=== PATIENT | female | born 1940 | race Caucasian/White ===

== ENCOUNTER 2016-12-13 11:11 | Inpatient (IN) | payer MEDICARE, BC ==
--- NOTE | 2016-12-13 11:39 | ER Document Report ---
ED General - General Stated Complaint: FALL/SYNCOPE Mode of Arrival: Medic Information source: Patient, Relative Notes: 76-year-old female on Coumadin presents after a syncopal episode. Patient notes she fell struck her head. Patient denies any chest pain shortness breath difficulty breathing. Family notes that she has not been eating over the past 2 -3 days. TRAVEL OUTSIDE OF THE [place] IN LAST 30 DAYS: No - HPI Onset: Just prior to arrival Onset/Duration: Sudden Quality of pain: No pain Severity: Mild Pain Level: 1 Associated symptoms: Weakness Exacerbated by: Denies Relieved by: Denies Similar symptoms previously: Yes Recently seen / treated by doctor: Yes - Related Data Allergies/Adverse Reactions: codeine [Codeine] Allergy (Verified 07/10/12 20:33) Past Medical History - Social History Smoking Status: Never Smoker Cigarette use (# per day): No Chew tobacco use (# tins/day): No Smoking Education Provided: No Family History: Reviewed & Not Pertinent - Past Medical History Cardiac Medical History: Reports: Hx DVT, Hx Hypercholesterolemia, Hx Hypertension - Immunizations Hx Diphtheria, Pertussis, Tetanus Vaccination: Yes Review of Systems - Review of Systems Notes: REVIEW OF SYSTEMS: CONSTITUTIONAL : Denies fever, chills, or sweats. Denies recent illness. EENT: Denies eye, ear, throat, or mouth pain or symptoms. Denies nasal or sinus congestion or discharge. Denies throat, tongue, or mouth swelling or difficulty swallowing. CARDIOVASCULAR: Denies chest pain. Denies palpitations or racing or irregular heart beat. Denies ankle edema. RESPIRATORY: Denies cough, cold, or chest congestion. Denies shortness of breath, difficulty breathing, or wheezing. GASTROINTESTINAL: Denies abdominal pain or distention. Denies nausea, vomiting , or diarrhea. Denies blood in vomitus, stools, or per rectum. Denies black, tarry stools. Denies constipation. GENITOURINARY: Denies difficulty urinating, painful urination, burning, frequency, blood in urine, or discharge. FEMALE GENITOURINARY: Denies vaginal bleeding, heavy or abnormal periods, irregular periods. Denies vaginal discharge or odor. MUSCULOSKELETAL: Denies back or neck pain or stiffness. Denies joint pain or swelling. SKIN: Admits laceration face HEMATOLOGIC : Denies easy bruising or bleeding. LYMPHATIC: Denies swollen, enlarged glands. NEUROLOGICAL: Admits to syncope PSYCHIATRIC: Denies anxiety or stress. Denies depression, suicidal ideation, or homicidal ideation. ALL OTHER SYSTEMS REVIEWED AND NEGATIVE. Dictation was performed using [employer] voice recognition software PHYSICAL EXAMINATION: GENERAL: Well-appearing, well-nourished and in no acute distress. HEAD: Atraumatic ecchymosis of the orbital region left supraorbital region laceration EYES: Pupils equal round and reactive to light, extraocular movements intact, conjunctiva are normal. ENT: Nares patent, oropharynx clear without exudates. Moist mucous membranes. NECK: Normal range of motion, supple without lymphadenopathy LUNGS: Breath sounds clear to auscultation bilaterally and equal. No wheezes rales or rhonchi. HEART: Regular rate and rhythm without murmurs ABDOMEN: Soft, nontender, nondistended abdomen. No guarding, no rebound. No masses appreciated. Female : deferred Musculoskeletal: Normal range of motion, no pitting or edema. No cyanosis. NEUROLOGICAL: Cranial nerves grossly intact. Normal speech, normal gait. Normal sensory, motor exams PSYCH: Normal mood, normal affect. SKIN: laceration of th eleft supraporbital region Physical Exam - Vital signs Vitals: BP Pulse Ox 159/86 H 97 12/13/16 11:37 12/13/16 11:37 Course - Re-evaluation Re-evalutation: 12/13/16 14:31 Given that patient is having syncopal episode on blood thinners CT of the head neck were performed no significant abnormality was noted, laceration was repaired with full strength sutures. Patient will be admitted to hospital service for evaluation and care - Vital Signs Vital signs: Temp Pulse Resp BP Pulse Ox 98 F 87 25 H 151/116 H 95 12/13/16 11:51 12/13/16 11:51 12/13/16 13:01 12/13/16 13:01 12/13/16 13:01 - Laboratory Result Diagrams: 12/13/16 11:45 12/13/16 11:45 Laboratory results interpreted by me: 12/13/16 12/13/16 12/13/16 11:45 11:45 11:45 RBC 3.56 L Hgb 10.8 L Hct 33.1 L RDW 17.9 H Plt Count 136 L Seg Neutrophils % 81.1 H Lymphocytes % 12.9 L PT Sodium 147.4 H Chloride 109 H Est GFR (Non-Af Amer) 55 L Total Bilirubin 3.0 H NT-Pro-B Natriuret Pep 98670 H Albumin 3.4 L 12/13/16 11:45 RBC Hgb Hct RDW Plt Count Seg Neutrophils % Lymphocytes % PT 15.5 H Sodium Chloride Est GFR (Non-Af Amer) Total Bilirubin NT-Pro-B Natriuret Pep Albumin - Diagnostic Test Radiology reviewed: Image reviewed, Reports reviewed - EKG Interpretation by Me EKG shows normal: Sinus rhythm, [place], Intervals, QRS Complexes - Inverted T waves atrial fibrillation When compared to previous EKG there are: No significant change Procedures - Laceration/Wound Repair Left Upper Face Time completed: 14:32 Wound length (cm): 3.5 Wound's Depth, Shape: Linear, Flap Laceration pre-procedure: Sterile PPE donned, Sterile drapes applied, Shur- Clens applied Anesthetic type: 1% Lidocaine Volume Anesthetic (mLs): 5 Wound explored: Clean, No foreign body removed Irrigated w/ Saline (mLs): 500 Wound Debrided: Moderate Wound Repaired With: Sutures Suture Size/Type: 4:0 Number of Sutures: 4 Post-procedure wound care: Sterile dressing applied Post-procedure NV exam normal: Yes Complications: No Discharge - Discharge Clinical Impression: Weakness Fall Qualifiers: Encounter type: initial encounter Qualified Code(s): W19.XXXA - Unspecified fall, initial encounter Syncope Qualifiers: Syncope type: unspecified Qualified Code(s): R55 - Syncope and collapse Facial laceration Qualifiers: Encounter type: initial encounter Qualified Code(s): S01.81XA - Laceration without foreign body of other part of head, initial encounter Condition: Stable Disposition: ADMITTED OBSERVATION Admitting Provider: Hospitalist Unit Admitted: Telemetry Referrals: CHRISTIANO EDMONDS MD [Primary Care Provider] - Follow up as needed
[2016-12-13 12:13] LABS: ABSOLUTE LYMPHOCYTES (AUTO) 0.6 10^3/uL (0.5-4.7); ABSOLUTE MONOCYTES (AUTO) 0.2 10^3/uL (0.1-1.4); BASOPHILS % (AUTO) 0.8 % (0-2); EOSINOPHILS % (AUTO) 0.9 % (0-6); HEMATOCRIT 33.1 % (36.0-47.0); HEMOGLOBIN 10.8 g/dL (12.0-15.5); HGB HCT DIFFERENCE -0.7; LYMPHOCYTES % (AUTO) 12.9 % (13-45); MEAN CORPUSCULAR HEMOGLOBIN 30.3 pg (27.0-33.4); MEAN CORPUSCULAR HGB CONC 32.5 g/dL (32.0-36.0); MEAN CORPUSCULAR VOLUME 93 fl (80-97); MONOCYTES % (AUTO) 4.3 % (3-13); RED BLOOD COUNT 3.56 10^6/uL (3.72-5.28); RED CELL DISTRIBUTION WIDTH 17.9 % (11.5-14.0); SEGMENTED NEUTROPHILS % (AUTO) 81.1 % (42-78); WHITE BLOOD COUNT 4.9 10^3/uL (4.0-10.5)
[2016-12-13 12:26] LABS: ALANINE AMINOTRANSFERASE 32 U/L (9-52); ALBUMIN 3.4 g/dL (3.5-5.0); ALKALINE PHOSPHATASE 73 U/L (38-126); ANION GAP 12 (5-19); ASPARTATE AMINO TRANSFERASE 21 U/L (14-36); BILIRUBIN,DIRECT 0.4 mg/dL (0.0-0.4); BLOOD UREA NITROGEN 15 mg/dL (7-20); CALCIUM 9.4 mg/dL (8.4-10.2); CARBON DIOXIDE 26 mmol/L (22-30); CHLORIDE 109 mmol/L (98-107); CREATINE KINASE 46 U/L (30-135); CREATININE RESULT 0.98 mg/dL (0.52-1.25); GLUCOSE 88 mg/dL (75-110); LIPASE 47.3 U/L (23-300); POTASSIUM 3.9 mmol/L (3.6-5.0); SODIUM 147.4 mmol/L (137-145); TOTAL PROTEIN 6.6 g/dL (6.3-8.2)
[2016-12-13 12:38] LABS: CREATINE KINASE MB 1.38 ng/mL (<4.55); TROPONIN I 0.022 ng/mL
[2016-12-13 12:39] LABS: PROTHROMBIN TIME 15.5 SEC (11.4-15.4)
[2016-12-13] MEDS ORDERED: NORMAL SALINE 500 ML IV ONE (14:05)
[2016-12-13] MEDS ORDERED: LIDOCAINE 1% INJ-PF (10 MG/ML) 30 ML SDV INJ ONE (14:14)
[2016-12-13] MEDS ORDERED: LIDOCAINE 1% INJ-PF (10 MG/ML) 30 ML SDV ONE (14:17)
[2016-12-13] MEDS ORDERED: NORMAL SALINE 1000 ML 1,000 ML IV PRN (14:42)
[2016-12-13] MEDS ORDERED: OXYCODONE-ACETAMINOPHEN 5-325 MG TABLET PO PRN (14:42)
[2016-12-13] MEDS ORDERED: ACETAMINOPHEN 325 MG TABLET PO PRN (14:42)
[2016-12-13] MEDS ORDERED: ONDANSETRON HCL INJ/PF 4 MG/2 ML SDV IV PRN (14:42)
[2016-12-13] MEDS ORDERED: ONDANSETRON 4 MG TAB.RAPDIS PO PRN (14:42)
[2016-12-13 15:05] LABS: APPEARANCE,URINE SLIGHTLY-CLOUDY; BILIRUBIN,URINE NEGATIVE (NEGATIVE); GLUCOSE, URINE NEGATIVE (NEGATIVE); KETONES,URINE TRACE mg/dL (NEGATIVE); LEUKOCYTE ESTERASE,URINE SMALL (NEGATIVE); NITRITE,URINE POSITIVE (NEGATIVE); PROTEIN,URINE NEGATIVE (NEGATIVE); URINE SPECIFIC GRAVITY 1.014; UROBILINOGEN,URINE NEGATIVE mg/dL (<2.0)
--- NOTE | 2016-12-13 15:07 | PDOC H&P ---
History of Present Illness Admission Date/PCP: 12/13/16 14:54 CHRISTIANO EDMONDS MD Patient complains of: Syncopal episode History of Present Illness: CHRISTINE SOLER is a 76 year old female who has some mild dementia and age fibrillation who presents after syncopal episode. The patient relates that she got up this morning and that her dog and then sat in her chair. She reports the next thing she reports is waking up been on the floor. She has no prodromal symptoms. She denies any palpitations or tachycardia. Denies any chest pain. Denies any headache except where she has a laceration on her left brow. The patient had a head CT which shows no evidence for an Acute intracranial abnormality. Patient denies any bowel or bladder incontinence. Denies any focal weakness. She denies any history of seizure activity. The patient lives alone and is checked on by her family every day. The daughter reports that she talk to her last night and she was normal. She was able to call the daughter to let her know that she had fallen and hit her head. Patient admitted for syncopal episode Past Medical History Cardiac Medical History: Reports: Atrial Fibrillation, DVT, Hyperlipidema, Hypertension, Other - History of thoracic aortic aneurysm with repair 2 Pulmonary Medical History: Reports: None Neurological Medical History: Reports: None Endocrine Medical History: Reports: None Renal/ Medical History: Reports: None Malignancy Medical History: Reports: None GI Medical History: Reports: None Skin Medical History: Reports: None Psychiatric Medical History: Reports: Dementia Hematology: Reports: None Infectious Medical History: Reports: None Past Surgical History Past Surgical History: Reports: Other - Thoracic aortic aneurysm repair 2 Social History Information Source: Patient Lives with: Alone Smoking Status: Never Smoker Frequency of Alcohol Use: None Hx Recreational Drug Use: No Drugs: None Hx Prescription Drug Abuse: No - Advance Directive Resuscitation Status: Do Not Resuscitate Surrogate healthcare decision maker:: Patient's daughter Family History Family History: Mother in her 80s with coronary artery disease. Father in his 80s with coronary artery disease. Parental Family History Reviewed: Yes Children Family History Reviewed: No Sibling(s) Family History Reviewed.: No Medication/Allergy Home Medications: Lisinopril/Hydrochlorothiazide [Zestoretic 20-25 mg Tablet] 1 tab DAILY Metoprolol Tartrate [Lopressor 50 mg Tablet] 50 mg PO BID 07/10/12 Omeprazole [Prilosec 20 mg Capsule] 20 mg PO DAILY 07/10/12 Simvastatin [Zocor 10 mg Tablet] 10 mg PO 07/10/12 Warfarin Sodium [Coumadin 7.5 mg Tablet] 7.5 mg PO 07/10/12 Warfarin Sodium [Coumadin] 6 mg PO 07/10/12 Allergies/Adverse Reactions: codeine [Codeine] Allergy (Verified 07/10/12 20:33) Review of Systems Constitutional: PRESENT: weight loss - 100 pound weight loss over the last year. ABSENT: chills, fever(s), headache(s) Eyes: ABSENT: visual disturbances Ears: ABSENT: hearing changes Cardiovascular: ABSENT: chest pain, dyspnea on exertion, edema, orthropnea, palpitations Respiratory: ABSENT: cough, hemoptysis Gastrointestinal: ABSENT: abdominal pain, constipation, diarrhea, hematemesis, hematochezia, nausea, vomiting Genitourinary: ABSENT: dysuria, hematuria Musculoskeletal: PRESENT: other - Pain over right brow where she has a laceration Integumentary: PRESENT: wounds - Right brow laceration. ABSENT: rash Neurological: PRESENT: as per HPI Psychiatric: ABSENT: anxiety, depression Endocrine: ABSENT: cold intolerance, heat intolerance, polydipsia, polyuria Hematologic/Lymphatic: ABSENT: easy bleeding, easy bruising Physical Exam Vital Signs: Temp Pulse Resp BP Pulse Ox 98 F 87 25 H 151/116 H 95 12/13/16 11:51 12/13/16 11:51 12/13/16 13:01 12/13/16 13:01 12/13/16 13:01 General appearance: PRESENT: no acute distress Head exam: PRESENT: other - Laceration has been sutured over the left brow. Eye exam: PRESENT: conjunctiva pink, EOMI, periorbital swelling - Left periorbital swelling, PERRLA. ABSENT: scleral icterus Ear exam: PRESENT: normal external ear exam Mouth exam: PRESENT: moist, tongue midline Neck exam: ABSENT: carotid bruit, JVD, lymphadenopathy, thyromegaly Respiratory exam: PRESENT: clear to auscultation staci. ABSENT: rales, rhonchi, wheezes Cardiovascular exam: PRESENT: irregular rhythm. ABSENT: diastolic murmur, rubs , systolic murmur GI/Abdominal exam: PRESENT: normal bowel sounds, soft. ABSENT: distended, guarding, mass, organolmegaly, rebound, tenderness Rectal exam: PRESENT: deferred Extremities exam: ABSENT: calf tenderness, clubbing, pedal edema Neurological exam: PRESENT: alert, awake, oriented to person, oriented to place , oriented to time, oriented to situation, CN II-XII grossly intact. ABSENT: motor sensory deficit Psychiatric exam: PRESENT: appropriate affect Skin exam: PRESENT: other - Ecchymosis and laceration over left brow Results Impressions: Cervical Spine CT 12/13/16 11:15 IMPRESSION: 1. Chronic degenerative changes and osteopenia in the cervical spine. No fracture or significant malalignment. 2. Apical lung changes, incompletely evaluated. Suggestion of left pleural fluid but no pneumothorax. Head CT 12/13/16 11:15 IMPRESSION: Chronic intracranial changes without evidence of hemorrhage or acute abnormality. Soft tissue injury over the left scalp. No underlying fracture. Chest X-Ray 12/13/16 12:46 IMPRESSION: Interstitial changes. Acuity indeterminate but suspect chronic interstitial disease. Cardiac enlargement. Findings not clearly related to congestive failure. Assessment & Plan - Diagnosis (1) Syncope Qualifiers: Syncope type: unspecified Qualified Code(s): R55 - Syncope and collapse Is this a current diagnosis for this admission?: YesPlan: The patient had a syncopal episode with no prodromal symptoms. This is concerning for possible cardiac arrhythmias. We'll monitor on telemetry and check serial cardiac enzymes. She does have atrial fibrillation and has been on a beta gavin. (2) Atrial fibrillation Is this a current diagnosis for this admission?: YesPlan: Patient currently is rate controlled. She is anticoagulated. We'll continue to monitor her heart rhythm overnight on telemetry. (3) Hypertension Is this a current diagnosis for this admission?: YesPlan: The patient's blood pressures are elevated. We'll continue with the Lopressor as well as lisinopril/hydrochlorothiazide (4) Hyperlipidemia Is this a current diagnosis for this admission?: YesPlan: Continue with Zocor. (5) Thoracic aortic aneurysm Is this a current diagnosis for this admission?: YesPlan: Patient has a history of thoracic aortic and years and repaired 2. She also relates that she has a Carlton filter in place. The patient reports that she would not want any other surgeries done. (6) Facial laceration Qualifiers: Encounter type: initial encounter Qualified Code(s): S01.81XA - Laceration without foreign body of other part of head, initial encounter Is this a current diagnosis for this admission?: YesPlan: The patient had a head CT which shows no acute intracranial event. No evidence for bone fracture. She has had sutures per the emergency room physician. (7) Do not resuscitate discussion Is this a current diagnosis for this admission?: YesPlan: This was discussed with the patient as well as the patient's daughter. They do not want any aggressive measures done. - Time Time Spent: 50 to 70 Minutes - Plan Summary Plan Summary: Patient will be admitted observation as I anticipate this will require less than two midnight hospital stay.
[2016-12-13] MEDS ORDERED: CIPROFLOXACIN 400 MG/D5W RTU 200 ML IV ONE (15:24)
[2016-12-13] MEDS: METOPROLOL TARTRATE 50 MG TABLET PO SCH (17:10)
[2016-12-13 18:21] LABS: CREATINE KINASE MB 1.21 ng/mL (<4.55); TROPONIN I 0.03 ng/mL
[2016-12-13] MEDS: FAMOTIDINE 20 MG TABLET PO SCH (21:11)
[2016-12-13] MEDS: SIMVASTATIN 10 MG TABLET PO SCH (21:11)
[2016-12-14 00:49] LABS: CREATINE KINASE MB 1.17 ng/mL (<4.55); TROPONIN I 0.023 ng/mL
[2016-12-14] MEDS: METOPROLOL TARTRATE 50 MG TABLET PO SCH ×2 (05:08→21:36)
[2016-12-14 06:07] LABS: HEMATOCRIT 30.9 % (36.0-47.0); HEMOGLOBIN 10.1 g/dL (12.0-15.5); HGB HCT DIFFERENCE -0.6; MEAN CORPUSCULAR HEMOGLOBIN 30.5 pg (27.0-33.4); MEAN CORPUSCULAR HGB CONC 32.7 g/dL (32.0-36.0); MEAN CORPUSCULAR VOLUME 93 fl (80-97); RED BLOOD COUNT 3.31 10^6/uL (3.72-5.28); RED CELL DISTRIBUTION WIDTH 17.9 % (11.5-14.0); WHITE BLOOD COUNT 4.4 10^3/uL (4.0-10.5)
[2016-12-14 06:20] LABS: MAGNESIUM 1.7 mg/dL (1.6-2.3)
[2016-12-14 06:34] LABS: CREATINE KINASE MB 1.01 ng/mL (<4.55); TROPONIN I 0.019 ng/mL
[2016-12-14] MEDS: CIPROFLOXACIN 400 MG/D5W RTU 200 ML IV SCH ×2 (09:30→21:35)
[2016-12-14] MEDS: FAMOTIDINE 20 MG TABLET PO SCH ×2 (09:31→21:36)
[2016-12-14] MEDS: HYDROCHLOROTHIAZIDE 25 MG TABLET PO SCH (09:31)
[2016-12-14] MEDS: LISINOPRIL 10 MG TABLET PO SCH (09:32)
[2016-12-14] MEDS: LANSOPRAZOLE 15 MG TAB.RAP.DR PO SCH (09:32)
[2016-12-14] MEDS: HALOPERIDOL LACTATE INJ 5 MG/1 ML VIAL IV PRN ×2 (09:33→15:10)
[2016-12-14] MEDS ORDERED: (PENDING PHARMACY ID) (Omeprazole [Prilosec 20 Mg Capsule] 20 MG) PO SCH (10:00)
[2016-12-14] MEDS ORDERED: (PENDING PHARMACY ID) (Lisinopril/Hydrochlorothiazide [Zestoretic 20-25 Mg Tablet] 1 TAB) PO SCH (10:00)
--- NOTE | 2016-12-14 10:52 | PDOC PROGRESS REPORT ---
Subjective Progress Note for:: 12/14/16 Subjective:: Patient has become very agitated overnight. She's been calling her family saying that people have been trying to steal things from her room. Physical Exam Vital Signs: Temp Pulse Resp BP Pulse Ox 97.6 F 89 16 129/83 H 90 L 12/14/16 07:39 12/14/16 07:39 12/14/16 07:39 12/14/16 07:39 12/14/16 07:39 General appearance: PRESENT: no acute distress Eye exam: PRESENT: conjunctiva pink, periorbital swelling. ABSENT: scleral icterus Mouth exam: PRESENT: moist, tongue midline Neck exam: ABSENT: JVD Respiratory exam: PRESENT: clear to auscultation staci. ABSENT: rales, rhonchi, wheezes Cardiovascular exam: PRESENT: irregular rhythm. ABSENT: diastolic murmur, rubs , systolic murmur GI/Abdominal exam: PRESENT: normal bowel sounds, soft. ABSENT: distended, guarding, mass, organolmegaly, rebound, tenderness Extremities exam: ABSENT: calf tenderness, clubbing, pedal edema Neurological exam: PRESENT: altered, oriented to person, CN II-XII grossly intact. ABSENT: oriented to place, oriented to time, oriented to situation, motor sensory deficit Psychiatric exam: PRESENT: anxious Results Impressions: Cervical Spine CT 12/13/16 11:15 IMPRESSION: 1. Chronic degenerative changes and osteopenia in the cervical spine. No fracture or significant malalignment. 2. Apical lung changes, incompletely evaluated. Suggestion of left pleural fluid but no pneumothorax. Head CT 12/13/16 11:15 IMPRESSION: Chronic intracranial changes without evidence of hemorrhage or acute abnormality. Soft tissue injury over the left scalp. No underlying fracture. Chest X-Ray 12/13/16 12:46 IMPRESSION: Interstitial changes. Acuity indeterminate but suspect chronic interstitial disease. Cardiac enlargement. Findings not clearly related to congestive failure. Assessment & Plan - Diagnosis (1) Syncope Qualifiers: Syncope type: unspecified Qualified Code(s): R55 - Syncope and collapse Is this a current diagnosis for this admission?: YesPlan: The patient had a syncopal episode with no prodromal symptoms. The patient's cardiac rhythm has been unremarkable overnight. She does have atrial fibrillation and has been on a beta gavin. She has become more confused overnight. This may be secondary to her underlying urinary tract infection. She appears to have developed acute encephalopathy. (2) Encephalopathy acute Is this a current diagnosis for this admission?: YesPlan: Patient has acute encephalopathy. This may be secondary to hospitalization or could possibly related to her acute urinary tract infection. Patient has been started on IV Cipro. The patient is not safe for discharge to home given her mental status change and recent head trauma. She does not have any focal deficits at this time however given the mental status changes we will go ahead and repeat head CT to make certain she's not had a delayed intracranial bleed. (3) Atrial fibrillation Is this a current diagnosis for this admission?: YesPlan: Patient currently is rate controlled. She is anticoagulated. We'll continue to monitor her heart rhythm on telemetry. (4) Hypertension Is this a current diagnosis for this admission?: YesPlan: The patient's blood pressures are elevated. We'll continue with the Lopressor as well as lisinopril/hydrochlorothiazide (5) Hyperlipidemia Is this a current diagnosis for this admission?: YesPlan: Continue with Zocor. (6) Thoracic aortic aneurysm Is this a current diagnosis for this admission?: YesPlan: Patient has a history of thoracic aortic and years and repaired 2. She also relates that she has a Carlton filter in place. The patient reports that she would not want any other surgeries done. (7) Facial laceration Qualifiers: Encounter type: initial encounter Qualified Code(s): S01.81XA - Laceration without foreign body of other part of head, initial encounter Is this a current diagnosis for this admission?: YesPlan: The patient had a head CT which shows no acute intracranial event. No evidence for bone fracture. She has had sutures per the emergency room physician. (8) Do not resuscitate discussion Is this a current diagnosis for this admission?: YesPlan: This was discussed with the patient as well as the patient's daughter. They do not want any aggressive measures done. - Time Time Spent with patient: 25-34 minutes - Inpatient Certification Medical Necessity: Need Close Monitoring Due to Risk of Patient Decompensation, Need for IV Antibiotics - Plan Summary Plan Summary: We'll change from observation to an inpatient as she has had an acute worsening of her neurological status. This most likely secondary to the urinary tract infection however we'll need to make certain that she has not had any type of acute intracranial event.
--- NOTE | 2016-12-14 12:31 | Physician Advisory Note ---
Physician Advisor ProgressNote .: Pursuant to the plan for [facility], I have reviewed the medical record for this patient. Physician Advisor Statement: Nice documentation of need for continued hospitalization. Possible documentation opportunities if attending agrees: 1. "hypernatremia, likely due to intravascular volume depletion due to poor po intake [from advanced dementia?]" 2. "persistent Afib" - now need to specify "paroxysmal" or "persistent" when report Afib. 3. "suspected protein-calorie malnutrition [state mild, mod, or severe] with BMI 22.4, 100 pound wt loss over last 1 year, ____[?appetite loss, ]" [if possible, give specifics on intake, wt loss, loss of SQ fat & muscle mass, diminished hand laborer high density press strength, & clinical importance such as (A) nutritional assessment ordered, (B) modified diet or supplements ordered, (C) additional labs ordered, (D) prolonged wound healing time, (E) delayed infxn clearance] As always, if concerned about any unstable VS or abnormal labs, please comment on them - what bad things they might indicate, why they concern you - & note what doing about them. Please also document each day the potential clinical problems you are concerned could occur if pt not kept in hospital for tx at this time. (These points are gatica - if present in each note, attending's status decision should be sufficiently supported.) Discussion: 76yo female w/ chronic co-morbidities including HTN, HLD, persistent Afib on chronic anticoagulation w/warfarin, past DVT, dementia, thoracic aortic aneurysm repair x2, IVCfilter - presented 12/13 to ED w/weakness, fall w/striking of head, syncope, facial lac , not eating x 2-3 days, 100# wt loss over the last yr (+) T98, HR 94 & as high as 101, RR14-25, BP 151/116, sat 97% then 96% on 2L. WBC 4.9, HGb 10.8, plts 136, Na 147.4, K 3.9, BUN 15, Cr 0.98, glc 88, TBili 3.0 , albumin 3.4, PT 15.5, INR 1.19, BNP 11,500, trop I 0.022. CXR c/w chronic ILD , cardiomegaly. Head CT = no acute intracranial findings. ED gave 500ml VF, IV cipro. Attending ordered NS @125ml/hr, IV cipro, tele monitoring, daily wts, I/Os, falls precautions, q4h VS. Status: Appropriate to bring in initially as Outpt Obs for syncope, hypernatremia. Since arrival, pt has worsening Hgb level (in setting of microscopic hematuria/ UTI, head trauma w/laceration, new AMS - very concerning for risk of ongoing blood loss, or delayed intracranial hemorrhage in patient already on warfarin). Trop Is went as high as 0.030, & then have fallen again. Pt now has worsening thrombocytopenia, which also increases risk for bleeding from any or all of these sources. She has developed significant agitation, which could be delirium from hosptitalization or from acute UTI, or due to new intracranial problem. This needs to be clarified, and the risks of continued agitation mitigated, before she can be safely d/c'd. This includes finding results of ur cx, to be certain UTI is being sufficiently treated so she does not become acutely worse in short term (in H/H as well as mental status). This AM, attending has needed to order prn Haldol 5mg (which may be sufficient to control her agitation but could also be enough to oversedate her with risk for further decrease in po intake in this already malnourished pt), along with CT head repeat to confirm no new intracranial bleeding. Attending plans to re-check labs in AM (f/u H/H, Na, watch for worsening WBC, ...). Tx for this Medicare pt for a 2nd MN in inpatient hospital setting is medically reasonable & necessary to protect pt's health, safety, & medical condition. Appropriate for change to Inpt status today. Thanks for your help with documentation accuracy/specificity improvement! Breann Sapp MD [facility]ENDING S[facility] Physician Advisor, Fellow of Hospital Medicine
[2016-12-14] MEDS: SIMVASTATIN 10 MG TABLET PO SCH (21:36)
[2016-12-15] MEDS: HALOPERIDOL LACTATE INJ 5 MG/1 ML VIAL IV PRN (00:01)
[2016-12-15 06:42] LABS: ABSOLUTE EOSINOPHILS # (AUTO) 0.1 10^3/uL (0.0-0.6); ABSOLUTE LYMPHOCYTES (AUTO) 0.8 10^3/uL (0.5-4.7); ABSOLUTE MONOCYTES (AUTO) 0.2 10^3/uL (0.1-1.4); ABSOLUTE NEUT (AUTO) 2.7 10^3/uL (1.7-8.2); BASOPHILS % (AUTO) 0.8 % (0-2); EOSINOPHILS % (AUTO) 2.6 % (0-6); HEMATOCRIT 30.3 % (36.0-47.0); HGB HCT DIFFERENCE -0.3; LYMPHOCYTES % (AUTO) 21.3 % (13-45); MEAN CORPUSCULAR HEMOGLOBIN 30.6 pg (27.0-33.4); MEAN CORPUSCULAR VOLUME 93 fl (80-97); MONOCYTES % (AUTO) 6.1 % (3-13); RED BLOOD COUNT 3.27 10^6/uL (3.72-5.28); RED CELL DISTRIBUTION WIDTH 17.7 % (11.5-14.0); SEGMENTED NEUTROPHILS % (AUTO) 69.2 % (42-78); WHITE BLOOD COUNT 3.9 10^3/uL (4.0-10.5)
[2016-12-15 06:59] LABS: ANION GAP 11 (5-19); BLOOD UREA NITROGEN 14 mg/dL (7-20); CALCIUM 8.9 mg/dL (8.4-10.2); CARBON DIOXIDE 25 mmol/L (22-30); CHLORIDE 108 mmol/L (98-107); CREATININE RESULT 0.97 mg/dL (0.52-1.25); GLUCOSE 79 mg/dL (75-110); POTASSIUM 3.6 mmol/L (3.6-5.0); SODIUM 143.9 mmol/L (137-145)
[2016-12-15] MEDS: FAMOTIDINE 20 MG TABLET PO SCH ×2 (09:20→21:48)
[2016-12-15] MEDS: LISINOPRIL 10 MG TABLET PO SCH (09:21)
[2016-12-15] MEDS: LANSOPRAZOLE 15 MG TAB.RAP.DR PO SCH (09:21)
[2016-12-15] MEDS: HYDROCHLOROTHIAZIDE 25 MG TABLET PO SCH (09:21)
[2016-12-15] MEDS: CIPROFLOXACIN 400 MG/D5W RTU 200 ML IV SCH ×2 (09:22→21:48)
[2016-12-15] MEDS ORDERED: METOPROLOL TARTRATE 50 MG TABLET PO SCH (09:23)
--- NOTE | 2016-12-15 09:35 | PDOC PROGRESS REPORT ---
Subjective Progress Note for:: 12/15/16 Subjective:: Patient complains of leg pain on the right. Patient denies any dizziness, chest pain, shortness of breath, nausea or vomiting, abdominal pain prior to the syncopal episode. No chills or fever as well. Physical Exam Vital Signs: Temp Pulse Resp BP Pulse Ox 97.5 F 68 16 140/79 H 96 12/15/16 07:25 12/15/16 07:25 12/15/16 07:25 12/15/16 07:25 12/15/16 07:25 Intake & Output 12/14/16 12/15/16 12/16/16 06:59 06:59 06:59 Intake Total 2648 Balance 2648 Weight 65 kg General appearance: PRESENT: no acute distress, cooperative Head exam: PRESENT: normocephalic Eye exam: PRESENT: EOMI, other - Patient has ecchymosis periorbitally on the left. Sutures left eyebrow intact. Wound without bleeding. Mouth exam: PRESENT: moist, neck supple Neck exam: ABSENT: JVD Respiratory exam: PRESENT: clear to auscultation staci Cardiovascular exam: PRESENT: irregular rhythm, systolic murmur - Left sternal border. ABSENT: gallop GI/Abdominal exam: PRESENT: soft. ABSENT: distended, tenderness Extremities exam: PRESENT: pedal edema - Mild on the right, other - Tenderness on the leg anteriorly on the right Neurological exam: PRESENT: alert, awake, oriented to situation Skin exam: PRESENT: dry, warm. ABSENT: cyanosis Results Laboratory Results: 12/15/16 06:13 12/15/16 06:13 12/15/16 12/15/16 06:13 06:13 WBC 3.9 L RBC 3.27 L Hgb 10.0 L Hct 30.3 L MCV 93 MCH 30.6 MCHC 33.0 RDW 17.7 H Plt Count 106 L Seg Neutrophils % 69.2 Lymphocytes % 21.3 Monocytes % 6.1 Eosinophils % 2.6 Basophils % 0.8 Absolute Neutrophils 2.7 Absolute Lymphocytes 0.8 Absolute Monocytes 0.2 Absolute Eosinophils 0.1 Absolute Basophils 0.0 Sodium 143.9 Potassium 3.6 Chloride 108 H Carbon Dioxide 25 Anion Gap 11 BUN 14 Creatinine 0.97 Est GFR ( Amer) > 60 Est GFR (Non-Af Amer) 56 L Glucose 79 Calcium 8.9 Impressions: Cervical Spine CT 12/13/16 11:15 IMPRESSION: 1. Chronic degenerative changes and osteopenia in the cervical spine. No fracture or significant malalignment. 2. Apical lung changes, incompletely evaluated. Suggestion of left pleural fluid but no pneumothorax. Chest X-Ray 12/13/16 12:46 IMPRESSION: Interstitial changes. Acuity indeterminate but suspect chronic interstitial disease. Cardiac enlargement. Findings not clearly related to congestive failure. Head CT 12/14/16 00:00 IMPRESSION: Limited study due to motion artifact. No acute intracranial hemorrhage, mass effect, or midline shift. Assessment & Plan - Diagnosis (1) Fall Qualifiers: Encounter type: subsequent encounter Qualified Code(s): W19.XXXD - Unspecified fall, subsequent encounter Is this a current diagnosis for this admission?: Yes (2) Syncope Qualifiers: Syncope type: unspecified Qualified Code(s): R55 - Syncope and collapse Is this a current diagnosis for this admission?: Yes (3) UTI (urinary tract infection) Qualifiers: Urinary tract infection type: acute cystitis Hematuria presence: without hematuria Qualified Code(s): N30.00 - Acute cystitis without hematuria Is this a current diagnosis for this admission?: Yes (4) Warfarin-induced coagulopathy Is this a current diagnosis for this admission?: Yes (5) Anemia of chronic disease Is this a current diagnosis for this admission?: Yes (6) Dementia Qualifiers: Dementia type: unspecified type Dementia behavioral disturbance: without behavioral disturbance Qualified Code(s): F03.90 - Unspecified dementia without behavioral disturbance Is this a current diagnosis for this admission?: Yes (7) Atrial fibrillation Qualifiers: Atrial fibrillation type: unspecified Qualified Code(s): I48.91 - Unspecified atrial fibrillation Is this a current diagnosis for this admission?: Yes (8) Hyperlipidemia Qualifiers: Hyperlipidemia type: unspecified Qualified Code(s): E78.5 - Hyperlipidemia, unspecified Is this a current diagnosis for this admission?: Yes (9) Hypertension Qualifiers: Hypertension type: essential hypertension Qualified Code(s): I10 - Essential (primary) hypertension Is this a current diagnosis for this admission?: Yes (10) Thoracic aortic aneurysm Qualifiers: Presence of rupture: without rupture Qualified Code(s): I71.2 - Thoracic aortic aneurysm, without rupture Is this a current diagnosis for this admission?: Yes (11) History of DVT (deep vein thrombosis) Is this a current diagnosis for this admission?: Yes - Time Time Spent with patient: 25-34 minutes - Plan Summary Plan Summary: We will decrease intravenous fluids. Decrease dose of beta gavin. Begin physical therapy. Continue current antibiotics. Obtain echocardiogram. Check orthostatics.
[2016-12-15] MEDS: NORMAL SALINE 1000 ML 1,000 ML IV PRN ×2 (12:32→16:09)
[2016-12-15] MEDS: METOPROLOL TARTRATE 25 MG TABLET PO SCH (17:55)
[2016-12-15] MEDS: SIMVASTATIN 10 MG TABLET PO SCH (21:48)
[2016-12-15] MEDS: NYSTATIN TOPICAL POWDER 15 GM TP SCH (21:48)
[2016-12-16] MEDS: HALOPERIDOL LACTATE INJ 5 MG/1 ML VIAL IV PRN ×2 (00:44→13:46)
[2016-12-16] MEDS: METOPROLOL TARTRATE 25 MG TABLET PO SCH ×2 (05:26→18:46)
[2016-12-16 06:30] LABS: HEMATOCRIT 29.8 % (36.0-47.0); HEMOGLOBIN 10.1 g/dL (12.0-15.5); HGB HCT DIFFERENCE 0.5; MEAN CORPUSCULAR HEMOGLOBIN 31.2 pg (27.0-33.4); MEAN CORPUSCULAR HGB CONC 33.8 g/dL (32.0-36.0); MEAN CORPUSCULAR VOLUME 92 fl (80-97); RED BLOOD COUNT 3.23 10^6/uL (3.72-5.28); RED CELL DISTRIBUTION WIDTH 17.7 % (11.5-14.0); WHITE BLOOD COUNT 4.1 10^3/uL (4.0-10.5)
[2016-12-16] MEDS: FAMOTIDINE 20 MG TABLET PO SCH ×2 (08:53→22:08)
[2016-12-16] MEDS: LANSOPRAZOLE 15 MG TAB.RAP.DR PO SCH (08:54)
[2016-12-16] MEDS: HYDROCHLOROTHIAZIDE 25 MG TABLET PO SCH (08:54)
[2016-12-16] MEDS: CIPROFLOXACIN 400 MG/D5W RTU 200 ML IV SCH ×2 (08:54→22:07)
[2016-12-16] MEDS: LISINOPRIL 10 MG TABLET PO SCH (08:54)
[2016-12-16] MEDS: NYSTATIN TOPICAL POWDER 15 GM TP SCH ×2 (08:55→22:07)
--- NOTE | 2016-12-16 09:13 | PDOC PROGRESS REPORT ---
Subjective Progress Note for:: 12/16/16 Subjective:: Patient's leg pain on the right slightly less. Patient denies any dizziness but understanding feels generally weak on her lower extremities, no chest pain, shortness of breath, nausea or vomiting, abdominal pain, chills nor fever as well. Physical Exam Vital Signs: Temp Pulse Resp BP Pulse Ox 97.5 F 79 18 163/80 H 93 12/16/16 07:38 12/16/16 07:38 12/16/16 07:38 12/16/16 07:38 12/16/16 07:38 Intake & Output 12/15/16 12/16/16 12/17/16 06:59 06:59 06:59 Intake Total 2648 3425 Balance 2648 3425 Weight 65 kg 65 kg General appearance: PRESENT: no acute distress, cooperative, thin Head exam: PRESENT: normocephalic Eye exam: PRESENT: other - Ecchymosis around left eye stable Mouth exam: PRESENT: moist, neck supple Neck exam: ABSENT: JVD Respiratory exam: PRESENT: clear to auscultation staci. ABSENT: rhonchi, wheezes Cardiovascular exam: PRESENT: irregular rhythm. ABSENT: gallop GI/Abdominal exam: PRESENT: soft. ABSENT: distended, tenderness Extremities exam: PRESENT: other - Trace pretibial edema Neurological exam: PRESENT: alert, awake, oriented to situation Skin exam: PRESENT: dry, warm. ABSENT: cyanosis Results Laboratory Results: 12/16/16 05:20 12/15/16 06:13 12/16/16 05:20 WBC 4.1 RBC 3.23 L Hgb 10.1 L Hct 29.8 L MCV 92 MCH 31.2 MCHC 33.8 RDW 17.7 H Plt Count 107 L Impressions: Cervical Spine CT 12/13/16 11:15 IMPRESSION: 1. Chronic degenerative changes and osteopenia in the cervical spine. No fracture or significant malalignment. 2. Apical lung changes, incompletely evaluated. Suggestion of left pleural fluid but no pneumothorax. Chest X-Ray 12/13/16 12:46 IMPRESSION: Interstitial changes. Acuity indeterminate but suspect chronic interstitial disease. Cardiac enlargement. Findings not clearly related to congestive failure. Head CT 12/14/16 00:00 IMPRESSION: Limited study due to motion artifact. No acute intracranial hemorrhage, mass effect, or midline shift. Ankle X-Ray 12/15/16 00:00 IMPRESSION: Calcaneal spur with no acute abnormality of the ankle. Tibia/Fibula X-Ray 12/15/16 00:00 IMPRESSION: NEGATIVE STUDY OF THE RIGHT TIBIA AND FIBULA. NO RADIOGRAPHIC EVIDENCE OF ACUTE INJURY. Assessment & Plan - Diagnosis (1) Fall Qualifiers: Encounter type: subsequent encounter Qualified Code(s): W19.XXXD - Unspecified fall, subsequent encounter Is this a current diagnosis for this admission?: Yes (2) Syncope Qualifiers: Syncope type: unspecified Qualified Code(s): R55 - Syncope and collapse Is this a current diagnosis for this admission?: Yes (3) UTI (urinary tract infection) Qualifiers: Urinary tract infection type: acute cystitis Hematuria presence: without hematuria Qualified Code(s): N30.00 - Acute cystitis without hematuria Is this a current diagnosis for this admission?: Yes (4) Warfarin-induced coagulopathy Is this a current diagnosis for this admission?: Yes (5) Anemia of chronic disease Is this a current diagnosis for this admission?: Yes (6) Dementia Qualifiers: Dementia type: unspecified type Dementia behavioral disturbance: without behavioral disturbance Qualified Code(s): F03.90 - Unspecified dementia without behavioral disturbance Is this a current diagnosis for this admission?: Yes (7) Atrial fibrillation Qualifiers: Atrial fibrillation type: unspecified Qualified Code(s): I48.91 - Unspecified atrial fibrillation Is this a current diagnosis for this admission?: Yes (8) Hyperlipidemia Qualifiers: Hyperlipidemia type: unspecified Qualified Code(s): E78.5 - Hyperlipidemia, unspecified Is this a current diagnosis for this admission?: Yes (9) Hypertension Qualifiers: Hypertension type: essential hypertension Qualified Code(s): I10 - Essential (primary) hypertension Is this a current diagnosis for this admission?: Yes (10) Thoracic aortic aneurysm Qualifiers: Presence of rupture: without rupture Qualified Code(s): I71.2 - Thoracic aortic aneurysm, without rupture Is this a current diagnosis for this admission?: Yes (11) History of DVT (deep vein thrombosis) Is this a current diagnosis for this admission?: Yes - Time Time Spent with patient: 25-34 minutes - Plan Summary Plan Summary: Continue current antibiotics. Continue gentle hydration. Physical therapy, awaiting subacute rehabilitation bed. Continue supportive care. Check orthostatic blood pressure. Awaiting echocardiogram.
--- NOTE | 2016-12-16 20:08 | XCELERA REPORT ---
[address] [address] Transthoracic Echocardiogram Report Name: CHRISTINE SOLER Age: 76 yrs Gender: Female : 1940 Patient Status: Inpatient Patient Location: 5\S\528\S\A Study Date: 12/16/2016 09:32 AM Height: 67 in Weight: 143 lb BSA: 1.8 m2 Procedure: A complete two-dimensional transthoracic echocardiogram was performed (2D, M-mode, spectral and color flow Doppler). The study was technically difficult with many images being suboptimal in quality. Reason For Study: syncope, valvular heart disease. Ordering Physician: ALEX TORREZ Performed By: Charisma Rangel Interpretation Summary LV EF is 40-45% Left ventricular systolic function is mild to moderately reduced. There is borderline concentric left ventricular hypertrophy. The left ventricle is grossly normal size. There is mild to moderate global hypokinesis of the left ventricle. The right ventricle is mildly dilated. The right ventricular systolic function is mild to moderately reduced. The right atrium is moderately dilated. The left atrium is mildly dilated. There is no mitral valve stenosis. There is a mild to moderate amount of mitral regurgitation There is no aortic valve stenosis There is a mild amount of aortic regurgitation There is a mild to moderate amount of tricuspid regurgitation Best estimated right ventricular systolic pressure is elevated at 50- 60mmHg. There is moderate to severe pulmonary hypertension by echo The inferior vena cava appeared normal and decreased < 50% with respiration (RAP 10-15 mmHg) There is no pericardial effusion. MMode/2D Measurements \T\ Calculations RVDd: 3.2 cm LVIDd: 5.0 cm FS: 20.5 % Ao root diam: 4.2 cm IVSd: 1.0 cm LVIDs: 4.0 cm EDV(Teich): LVPWd: 1.0 cm 117.2 ml Ao root area: 14.0 cm2 ESV(Teich): LA dimension: 4.4 cm 68.3 ml EF(Teich): 41.7 % LA A2Cs: LA A4Cs: LA length: 8.3 cm LA Vol Index (BP): 32.3 cm2 39.1 cm2 73.5 ml/m2 LA Volume: 128.9 ml Doppler Measurements \T\ Calculations MV E max david: MV P1/2t max david: Ao V2 max: AI max david: 112.0 cm/sec 113.0 cm/sec 143.0 cm/sec 527.9 cm/sec MV A max david: MV P1/2t: 38.7 msec Ao max PG: AI max P.4 cm/sec 8.2 mmHg 111.5 mmHg MV E/A: 2.5 MVA(P1/2t): 5.7 cm2 AI dec slope: MV dec slope: 856.2 cm/sec2 256.1 cm/sec2 MV dec time: AI P1/2t: 0.12 sec 603.7 msec LV V1 max PG: PA V2 max: PI end-d david: TR max david: 3.7 mmHg 67.1 cm/sec 226.7 cm/sec 357.0 cm/sec LV V1 max: PA max P.8 mmHg TR max P.3 cm/sec 51.0 mmHg Left Ventricle The left ventricle is grossly normal size. There is borderline concentric left ventricular hypertrophy. Left ventricular systolic function is mild to moderately reduced. LV EF is 40-45%. Doppler measurements suggest reversible restrictive left ventricular relaxation, which is associated with grade III/IV or moderate diastolic dysfunction. There is mild to moderate global hypokinesis of the left ventricle. Right Ventricle The right ventricle is mildly dilated. There is normal right ventricular wall thickness. The right ventricular systolic function is mild to moderately reduced. Atria The right atrium is moderately dilated. The left atrium is mildly dilated. Interarterial septum not well visualized and not well dopplered. Cannot comment on ASD/PFO presence. Mitral Valve The mitral valve leaflets are sclerotic and show some degree of functional abnormality. There is no mitral valve stenosis. There is a mild to moderate amount of mitral regurgitation. Aortic Valve The aortic valve is grossly normal. There is no aortic valve stenosis. There is a mild amount of aortic regurgitation. Tricuspid Valve The tricuspid valve is not well visualized, but is grossly normal. There is no tricuspid stenosis. There is a mild to moderate amount of tricuspid regurgitation. There is moderate to severe pulmonary hypertension by echo. Best estimated right ventricular systolic pressure is elevated at 50- 60mmHg. Pulmonic Valve The pulmonic valve is not well visualized. Great Vessels The aortic root is not well visualized but is probably normal size. The inferior vena cava appeared normal and decreased < 50% with respiration (RAP 10-15 mmHg). Effusions There is no pericardial effusion. : ALEX TORREZ > Aelxander Mccollum
[2016-12-16] MEDS: SIMVASTATIN 10 MG TABLET PO SCH (22:08)
[2016-12-17] MEDS: HALOPERIDOL LACTATE INJ 5 MG/1 ML VIAL IV PRN (00:37)
[2016-12-17 10:21] VITALS: BP 154/82
[2016-12-17] MEDS: CIPROFLOXACIN 400 MG/D5W RTU 200 ML IV SCH (10:46)
[2016-12-17] MEDS: METOPROLOL TARTRATE 25 MG TABLET PO SCH (10:46)
[2016-12-17] MEDS: FAMOTIDINE 20 MG TABLET PO SCH (10:47)
[2016-12-17] MEDS: LISINOPRIL 10 MG TABLET PO SCH (10:47)
[2016-12-17] MEDS: HYDROCHLOROTHIAZIDE 25 MG TABLET PO SCH (10:48)
[2016-12-17] MEDS: LANSOPRAZOLE 15 MG TAB.RAP.DR PO SCH (10:48)
[2016-12-17] MEDS: NYSTATIN TOPICAL POWDER 15 GM TP SCH (10:48)
--- NOTE | 2016-12-17 14:02 | PDOC TRANSFER SUMMARY ---
General - Admit/Disc Date/PCP Admission Date/Primary Care Provider: 12/14/16 08:47 CHRISTIANO EDMONDS MD Discharge Date: 12/17/16 - Discharge Diagnosis (1) Fall Is this a current diagnosis for this admission?: Yes (2) Syncope Is this a current diagnosis for this admission?: Yes (3) UTI (urinary tract infection) Is this a current diagnosis for this admission?: Yes (4) Warfarin-induced coagulopathy Is this a current diagnosis for this admission?: Yes (5) Anemia of chronic disease Is this a current diagnosis for this admission?: Yes (6) Dementia Is this a current diagnosis for this admission?: Yes (7) Atrial fibrillation Is this a current diagnosis for this admission?: Yes (8) Hyperlipidemia Is this a current diagnosis for this admission?: Yes (9) Hypertension Is this a current diagnosis for this admission?: Yes (10) Thoracic aortic aneurysm Is this a current diagnosis for this admission?: Yes (11) History of DVT (deep vein thrombosis) Is this a current diagnosis for this admission?: Yes (12) Pulmonary hypertension Is this a current diagnosis for this admission?: Yes - Additional Information Resuscitation Status: Do Not Resuscitate Discharge Diet: Cardiac - low-fat low-salt Discharge Activity: Activity As Tolerated, Balance Activity w/Rest, Slowly Increase Activity Home Medications: Sertraline HCl [Zoloft 50 mg Tablet] 50 mg PO DAILY 12/13/16 Famotidine [Pepcid 20 mg Tablet] 20 mg PO Q12 tablet 12/17/16 Lisinopril [Prinivil] 10 mg PO DAILY #30 tablet 12/17/16 Metoprolol Tartrate [Lopressor 25 mg Tablet] 50 mg PO Q12A #0 tablet 12/17/16 Nystatin [Mycostatin Topical Powder 15 gm] 1 applic TP Q12 bottle 12/17/16 Warfarin Sodium [Coumadin 5 mg Tablet] 3 mg PO QHS #0 12/17/16 Additional Information: PT/INR on 12/20/2016 and relay results to primary physician History of Present Illness Admission Date/PCP: 12/14/16 08:47 CHRISTIANO EDMONDS MD Patient complains of: Syncope and fall History of Present Illness: CHRISTINE SOLER is a 76 year old female who has some mild dementia and age fibrillation who presents after syncopal episode. The patient relates that she got up this morning and that her dog and then sat in her chair. She reports the next thing she reports is waking up been on the floor. She has no prodromal symptoms. She denies any palpitations or tachycardia. Denies any chest pain. Denies any headache except where she has a laceration on her left brow. The patient had a head CT which shows no evidence for an Acute intracranial abnormality. Patient denies any bowel or bladder incontinence. Denies any focal weakness. She denies any history of seizure activity. The patient lives alone and is checked on by her family every day. The daughter reports that she talk to her last night and she was normal. She was able to call the daughter to let her know that she had fallen and hit her head. Patient admitted for syncopal episode Hospital Course Hospital Course: The patient was admitted to telemetry floor. The patient was hydrated with intravenous fluid. She was found to have urinary tract infection and was begun on antibiotics. Her anticoagulation was held as she sustained facial bruise on the left side around her eye. Serial monitoring of hemoglobin and hematocrit was stable however. Head CT scan did not show any acute bleeding. Cervical spine CT did not reveal any fracture. Chest x-ray showed no acute infiltrate. Patient's INR is mildly elevated. Weight hydration and antibiotic treatment the patient improved. No significant arrhythmia noted on the monitor. No syncopal episode was noted as well. Her brain natruretic peptide was elevated, and echocardiogram revealed moderate to severe pulmonary hypertension. Her diuretics was not continued, ISIAH inhibitor dose was decreased, patient was maintained on beta gavin. Family wanted the patient to go to alternate level of care or subacute rehabilitation, physical therapy was instituted, maintenance planner was consulted and when a bed was available she was transferred. Her warfarin will be resumed at the [facility] and slowly build up her INR. Patient apparently had several episodes of DVT in the past according to the family, and history of long-standing atrial fibrillation. They wish to continue the warfarin at this time, have an appointment with her ticket sales supervisor on an outpatient basis, and to see if they could stop it and replace it with just aspirin, Aggrenox, or Plavix. The rest of the hospital stay is unremarkable. Physical Exam Vital Signs: Temp Pulse Resp BP Pulse Ox 97.7 F 80 14 154/82 H 97 12/17/16 07:52 12/17/16 07:52 12/17/16 07:52 12/17/16 07:52 12/17/16 07:52 Intake & Output 12/16/16 12/17/16 12/18/16 06:59 06:59 06:59 Intake Total 3425 1834 Balance 3425 1834 Weight 65 kg 65 kg General appearance: PRESENT: no acute distress, cooperative Head exam: PRESENT: normocephalic, other - Periorbital bruise on the left stable Eye exam: PRESENT: EOMI Mouth exam: PRESENT: moist, neck supple Neck exam: ABSENT: JVD Respiratory exam: PRESENT: clear to auscultation staci. ABSENT: rhonchi, wheezes Cardiovascular exam: PRESENT: irregular rhythm. ABSENT: gallop GI/Abdominal exam: PRESENT: soft. ABSENT: distended, tenderness Extremities exam: PRESENT: other - Trace lower extremity edema Neurological exam: PRESENT: alert, awake Skin exam: PRESENT: dry, warm. ABSENT: cyanosis Results Laboratory Results: 12/16/16 05:20 12/15/16 06:13 Impressions: Cervical Spine CT 12/13/16 11:15 IMPRESSION: 1. Chronic degenerative changes and osteopenia in the cervical spine. No fracture or significant malalignment. 2. Apical lung changes, incompletely evaluated. Suggestion of left pleural fluid but no pneumothorax. Chest X-Ray 12/13/16 12:46 IMPRESSION: Interstitial changes. Acuity indeterminate but suspect chronic interstitial disease. Cardiac enlargement. Findings not clearly related to congestive failure. Head CT 12/14/16 00:00 IMPRESSION: Limited study due to motion artifact. No acute intracranial hemorrhage, mass effect, or midline shift. Ankle X-Ray 12/15/16 00:00 IMPRESSION: Calcaneal spur with no acute abnormality of the ankle. Tibia/Fibula X-Ray 12/15/16 00:00 IMPRESSION: NEGATIVE STUDY OF THE RIGHT TIBIA AND FIBULA. NO RADIOGRAPHIC EVIDENCE OF ACUTE INJURY. Transfer Plan - Disposition Transfer Plan: long-term facility for subacute rehabilitation. - Time Spent with Patient Time spent with patient: Less than 30 Minutes Qualifiers PATEINT BEING DISCHARGED WITH ANY OF THE FOLLOWING DIAGNOSIS?: No Plan Discharge Plan: Follow-up with primary care physician in one week. Follow-up with ticket sales supervisor in [facility] in one week. Time Spent: Less than 30 Minutes
== END 2016-12-17 16:55 | DRG 312 ==
LOC: ER 11:11 → EH 14:42 → UNDOADMOB 14:54 → EH 14:54 → 5 16:44 → OBSVTOIN 12-14 08:47
PROVIDERS: ADMIT Internal Medicine; ATTEND Internal Medicine
PROC: 0HQ1XZZ Repair Face Skin, External Approach (ICD-10-PCS; principal; 2016-12-13)
DX: R55 Syncope and collapse (principal); G93.40 Encephalopathy, unspecified; N30.00 Acute cystitis without hematuria; D68.32 Hemorrhagic disorder due to extrinsic circulating anticoagulants; Z66 Do not resuscitate; S01.112A Laceration without foreign body of left eyelid and periocular area, initial encounter; E78.5 Hyperlipidemia, unspecified; I10 Essential (primary) hypertension; F03.90 Unspecified dementia, unspecified severity, without behavioral disturbance, psychotic disturbance, mood disturbance, and anxiety; I48.2 Chronic atrial fibrillation; D63.8 Anemia in other chronic diseases classified elsewhere; I27.2 Other secondary pulmonary hypertension; I71.2 Thoracic aortic aneurysm, without rupture; W18.39XA Other fall on same level, initial encounter; Y93.89 Activity, other specified; Y92.9 Unspecified place or not applicable; Z60.2 Problems related to living alone; Z86.718 Personal history of other venous thrombosis and embolism; Z79.01 Long term (current) use of anticoagulants
CPT/HCPCS: 36415; 70450; 71020; 72125; 80048; 80053; 81001; 82550; 82553; 83690; 83735; 83880; 84484; 85025; 85027; 85610; 87040; 93306; 96361; 96365; 99285; G0378; G8978-GP; G8979-GP; J0744; J1630; J3490; J7030; J7040

== ENCOUNTER 2017-02-19 09:25 | Emergency (ER) | payer MEDICARE, BC ==
[2017-02-19] MEDS ORDERED: ASPIRIN 81 MG TABLET, CHEWABLE PO ONE (09:29)
--- NOTE | 2017-02-19 09:44 | ER Document Report ---
ED General - General Stated Complaint: CHEST PAIN Time Seen by Provider: 02/19/17 09:29 Mode of Arrival: Medic Information source: Patient, Relative, Law Enforcement Notes: 76 yr old female presents with complaints of left upper rib pain sharp as of this morning. Pt denies any fevers or chills, denies any sob. TRAVEL OUTSIDE OF THE [place] IN LAST 30 DAYS: No - HPI Onset: Just prior to arrival Onset/Duration: Sudden Quality of pain: Sharp Severity: Mild Pain Level: 1 Associated symptoms: Chest pain Exacerbated by: Movement Relieved by: Denies Similar symptoms previously: No Recently seen / treated by doctor: No - Related Data Allergies/Adverse Reactions: codeine [Codeine] Allergy (Verified 07/10/12 20:33) Past Medical History - Social History Smoking Status: Never Smoker Cigarette use (# per day): No Chew tobacco use (# tins/day): No Smoking Education Provided: No Family History: Reviewed & Not Pertinent - Past Medical History Cardiac Medical History: Reports: Hx Atrial Fibrillation, Hx DVT, Hx Hypercholesterolemia, Hx Hypertension Psychiatric Medical History: Reports: Hx Dementia Past Surgical History: Reports: Other - Thoracic aortic aneurysm repair 2 - Immunizations Hx Diphtheria, Pertussis, Tetanus Vaccination: Yes Review of Systems - Review of Systems Notes: REVIEW OF SYSTEMS: CONSTITUTIONAL : Denies fever, chills, or sweats. Denies recent illness. EENT: Denies eye, ear, throat, or mouth pain or symptoms. Denies nasal or sinus congestion or discharge. Denies throat, tongue, or mouth swelling or difficulty swallowing. CARDIOVASCULAR: admits to chest pain RESPIRATORY: Denies cough, cold, or chest congestion. Denies shortness of breath, difficulty breathing, or wheezing. GASTROINTESTINAL: Denies abdominal pain or distention. Denies nausea, vomiting , or diarrhea. Denies blood in vomitus, stools, or per rectum. Denies black, tarry stools. Denies constipation. GENITOURINARY: Denies difficulty urinating, painful urination, burning, frequency, blood in urine, or discharge. FEMALE GENITOURINARY: Denies vaginal bleeding, heavy or abnormal periods, irregular periods. Denies vaginal discharge or odor. MUSCULOSKELETAL: edema left lower extremity SKIN: Denies rash, lesions or sores. HEMATOLOGIC : Denies easy bruising or bleeding. LYMPHATIC: Denies swollen, enlarged glands. NEUROLOGICAL: Denies confusion or altered mental status. Denies passing out or loss of consciousness. Denies dizziness or lightheadedness. Denies headache. Denies weakness or paralysis or loss of use of either side. Denies problems with gait or speech. Denies sensory loss, numbness, or tingling. Denies seizures. PSYCHIATRIC: Denies anxiety or stress. Denies depression, suicidal ideation, or homicidal ideation. ALL OTHER SYSTEMS REVIEWED AND NEGATIVE. PHYSICAL EXAMINATION: GENERAL: Well-appearing, well-nourished and in no acute distress. HEAD: Atraumatic, normocephalic. EYES: Pupils equal round and reactive to light, extraocular movements intact, conjunctiva are normal. ENT: Nares patent, oropharynx clear without exudates. Moist mucous membranes. NECK: Normal range of motion, supple without lymphadenopathy LUNGS: Breath sounds clear to auscultation bilaterally and equal. No wheezes rales or rhonchi. HEART: Regular rate and rhythm without murmurs ABDOMEN: Soft, nontender, nondistended abdomen. No guarding, no rebound. No masses appreciated. Female : deferred Musculoskeletal: easily reproducing left upper rib pain mid axillary. +2 pitting left leg, +1 edema right NEUROLOGICAL: Cranial nerves grossly intact. Normal speech, normal gait. Normal sensory, motor exams PSYCH: Normal mood, normal affect. SKIN: Warm, Dry, normal turgor, no rashes or lesions noted. Dictation was performed using [employer] voice recognition software Physical Exam - Vital signs Vitals: Resp Pulse Ox 19 90 L 02/19/17 09:30 02/19/17 09:30 Course - Re-evaluation Re-evalutation: 02/19/17 09:50 Chest pain is reproducible on palpation, patient otherwise noted to be mildly hypoxic 02/19/17 14:59 CTa chest noted no acute abnormality, doppler left leg was normal, labss were normal, pt otherwise is well appearing , no distress, will dc home with daughters agreement 02/19/17 15:26 After performing a Medical Screening Examination, I estimate there is LOW risk for RUPTURED ESOPHAGUS, PNEUMOTHORAX, PULMONARY EMBOLISM, ACUTE CORONARY SYNDROME, OR THORACIC AORTIC DISSECTION, thus I consider the discharge disposition reasonable. I have reevaluated this patient multiple times and no significant life threatening changes are noted. The patient and I have discussed the diagnosis and risks, and we agree with discharging home with close follow-up. We also discussed returning to the Emergency Department immediately if new or worsening symptoms occur. We have discussed the symptoms which are most concerning (e.g., bloody sputum, worsening pain or shortness of breath) that necessitate immediate return. - Vital Signs Vital signs: Temp Pulse Resp BP Pulse Ox 98.8 F 101 H 18 137/87 H 92 02/19/17 09:44 02/19/17 12:24 02/19/17 12:01 02/19/17 12:00 02/19/17 12:24 - Laboratory Result Diagrams: 02/19/17 09:40 02/19/17 09:40 Laboratory results interpreted by me: 02/19/17 02/19/17 02/19/17 09:40 09:40 09:40 RBC 3.55 L Hgb 10.6 L Hct 33.2 L RDW 16.8 H Plt Count 125 L PT 20.6 H Potassium 3.5 L Total Bilirubin 2.1 H Creatine Kinase 28 L Albumin 3.4 L - Diagnostic Test Radiology reviewed: Image reviewed, Reports reviewed - EKG Interpretation by Me EKG shows normal: Sinus rhythm, [place], Intervals, QRS Complexes Discharge - Discharge Clinical Impression: Chest wall pain, Tachycardia Condition: Stable Disposition: HOME, SELF-CARE Instructions: Chest Wall Pain ([facility]) Referrals: CHRISTIANO EDMONDS MD [Primary Care Provider] - Follow up tomorrow
[2017-02-19 10:00] LABS: ABSOLUTE EOSINOPHILS # (AUTO) 0.1 10^3/uL (0.0-0.6); ABSOLUTE LYMPHOCYTES (AUTO) 0.8 10^3/uL (0.5-4.7); ABSOLUTE MONOCYTES (AUTO) 0.4 10^3/uL (0.1-1.4); ABSOLUTE NEUT (AUTO) 3.5 10^3/uL (1.7-8.2); BASOPHILS % (AUTO) 0.6 % (0-2); HEMATOCRIT 33.2 % (36.0-47.0); HEMOGLOBIN 10.6 g/dL (12.0-15.5); HGB HCT DIFFERENCE -1.4; LYMPHOCYTES % (AUTO) 16.2 % (13-45); MEAN CORPUSCULAR HGB CONC 32.1 g/dL (32.0-36.0); MEAN CORPUSCULAR VOLUME 93 fl (80-97); MONOCYTES % (AUTO) 7.6 % (3-13); RED BLOOD COUNT 3.55 10^6/uL (3.72-5.28); RED CELL DISTRIBUTION WIDTH 16.8 % (11.5-14.0); SEGMENTED NEUTROPHILS % (AUTO) 73.6 % (42-78); WHITE BLOOD COUNT 4.7 10^3/uL (4.0-10.5)
[2017-02-19 10:29] LABS: ALANINE AMINOTRANSFERASE 28 U/L (9-52); ALBUMIN 3.4 g/dL (3.5-5.0); ALKALINE PHOSPHATASE 78 U/L (38-126); ANION GAP 9 (5-19); ASPARTATE AMINO TRANSFERASE 20 U/L (14-36); BILIRUBIN,DIRECT 0.3 mg/dL (0.0-0.4); BILIRUBIN,TOTAL 2.1 mg/dL (0.2-1.3); BLOOD UREA NITROGEN 18 mg/dL (7-20); CALCIUM 9.1 mg/dL (8.4-10.2); CARBON DIOXIDE 29 mmol/L (22-30); CHLORIDE 102 mmol/L (98-107); CREATINE KINASE 28 U/L (30-135); CREATININE RESULT 0.77 mg/dL (0.52-1.25); GLUCOSE 91 mg/dL (75-110); POTASSIUM 3.5 mmol/L (3.6-5.0); SODIUM 139.8 mmol/L (137-145)
[2017-02-19 10:35] LABS: PROTHROMBIN TIME 20.6 SEC (11.4-15.4)
[2017-02-19 10:41] LABS: CREATINE KINASE MB 0.52 ng/mL (<4.55)
[2017-02-19 10:42] LABS: TROPONIN I < 0.012 ng/mL
--- NOTE | 2017-02-19 10:45 | RADIOLOGY REPORT (SQ) ---
EXAM DESCRIPTION: VENOUS UNILATERAL LOWER left leg COMPLETED DATE/TIME: 02/19/2017 10:21 am REASON FOR STUDY: left leg edema COMPARISON: 2011 TECHNIQUE: Dynamic and static stewart scale and color images acquired of the left leg venous system. Se lected spectral images acquired with additional compression and augmentation maneuvers. The contralat eral common femoral vein and saphenofemoral junction were also imaged. Images stored on PACS. LIMITATIONS: None. FINDINGS: COMMON FEMORAL: Normal phasicity, compression and augmentation. No visualized echogenic ma terial on stewart scale. No defects on color images. FEMORAL: Normal compression and augmentation. No visualized echogenic material on stewart scale. No defe cts on color images. POPLITEAL: Normal compression, augmentation. No visualized echogenic material on stewart scale. No defec ts on color images. CALF VESSELS: Normal compression, augmentation. No visualized echogenic material on stewart scale. No de fects on color images. GSV and SSV: Normal compression, augmentation. No visualized echogenic material on stewart scale. No def ects on color images. ANY DEEP VENOUS INSUFFICIENCY: Not evaluated. ANY EVIDENCE OF POPLITEAL CYST: No. OTHER: No other significant finding. CONTRALATERAL COMMON FEMORAL VEIN AND SAPHENOFEMORAL JUNCTION: Normal phasicity, compression and augmentation. No visualized echogenic material on stewart scale. No de fects on color images. IMPRESSION: No ultrasound evidence for DVT of left leg. TECHNICAL DOCUMENTATION: JOB ID: [id number] [employer]- All Rights Reserved
--- NOTE | 2017-02-19 11:16 | RADIOLOGY REPORT (SQ) ---
EXAM DESCRIPTION: RIBS LEFT W/PA CHEST/ left rib detail COMPLETED DATE/TIME: 02/19/2017 10:51 am REASON FOR STUDY: left rib pain COMPARISON: 12/13/2016 TECHNIQUE: Frontal view of the chest and additional views of the left ribs acquired. NUMBER OF VIEWS: Five views LIMITATIONS: None. FINDINGS: FRONTAL CXR: Interstitial/vascular changes again seen the lung ortega. Vascular congestio n a consideration. Curvilinear density right lung apex likely overlying soft tissue. No clear-cut p neumothorax. Cardiomegaly with operative changes stable. RIBS: No displaced rib fractures. No lytic or blastic bony lesions. OTHER: Surgical clips right axilla. IMPRESSION: No displaced rib fractures. Cardiomegaly. Interstitial pulmonary changes. Vascular congestion a consideration. COMMENT: SITE OF TRAUMA/COMPLAINT MARKED/STAMP COMPLETED: No TECHNICAL DOCUMENTATION: JOB ID: [id number] [employer]- All Rights Reserved
[2017-02-19] MEDS ORDERED: IPRATROPIUM/ALBUTEROL 0.5-2.5 MG/3 ML AMPUL NEB ONE (11:23)
--- NOTE | 2017-02-19 13:06 | EKG REPORT ---
SEVERITY:- ABNORMAL ECG - ATRIAL FIBRILLATION, V-RATE 83-138 RIGHT BUNDLE BRANCH BLOCK = [facility] : Confirmed by: Davis Silver MD 19-Feb-2017 13:06:05
--- NOTE | 2017-02-19 14:54 | RADIOLOGY REPORT (SQ) ---
EXAM DESCRIPTION: CTA CHEST COMPLETED DATE/TIME: 02/19/2017 1:45 pm REASON FOR STUDY: chest pain COMPARISON: CT chest 05/13/2011 Left rib films 02/19/2017 TECHNIQUE: CT scan of the chest performed using helical scanning technique with dynamic intravenous contrast injection. Images reviewed with lung, soft tissue and bone windows. Reconstructed coronal and sagittal MPR images reviewed. Additional 3 dimensional post-processing performed to develop Maximal Intensity Projection images ([place] P). All images stored on PACS. All CT scanners at this facility use dose modulation, iterative reconstruction, and/or weight based d osing when appropriate to reduce radiation dose to as low as reasonably achievable (ALARA). [facility]: Dose Right [facility]: CareDose [facility]: Dose Right [facility]: Teradose 4D [facility]: [employer] CONTRAST TYPE AND DOSE: contrast/concentration: Isovue 370.00 mg/ml; Total Contrast Delivered: 63.0 ml; Total Saline Delivered: 83.0 ml RENAL FUNCTION: Creatinine 0.77 RADIATION DOSE: Up-to-date CT equipment and radiation dose reduction techniques were employed. CTDIv ol: 14.3 - 23.2 mGy. DLP: 517 mGy-cm. . LIMITATIONS: None. FINDINGS: LUNGS AND PLEURA: Pulmonary fibrosis with honeycombing and thickened interlobular septa ar ound the periphery of both lungs. This has progressed compared to CT exam from 2010. No dense consolidation worrisome for pneumonia. No ground-glass opacities worrisome for pulmonary ed maldonado. No pleural effusion. No pneumothorax. AORTA AND GREAT VESSELS: There is a chronic thoracic aortic dissection with diffuse aneurysmal dilata tion of the thoracic aorta. This is stable compared to CT exam 05/13/2011. Thoracic aorta diameter i s as follows: Ascending thoracic aorta 5.7 cm diameter, stable Proximal descending thoracic aorta 3.4 cm diameter, stable Distal thoracic aorta 3.5 cm diameter, stable HEART: No pericardial effusion. Marked cardiomegaly PULMONARY ARTERIES: No emboli visualized in the main pulmonary arteries or the segmental branches. HILAR AND MEDIASTINAL STRUCTURES: Multiple less than 10 mm stable short axis prevascular, precarinal and AP window lymph nodes. Old sternotomy for CABG HARDWARE: None in the chest. UPPER ABDOMEN: No significant findings. Limited exam. THYROID AND OTHER SOFT TISSUES: No masses. No adenopathy. BONES: No acute or significant finding. 3D MIPS: Confirm above findings. OTHER: No other significant finding. IMPRESSION: No CT angio evidence of acute pulmonary emboli. Stable thoracic aortic dissection/ [facility] TECHNICAL DOCUMENTATION: JOB ID: [id number] Quality ID # [id number]: Final reports with documentation of one or more dose reduction techniques (e.g., Au tomated exposure control, adjustment of the mA and/or kV according to patient size, use of iterative reconstruction technique) 2010 [email or web address]- All Rights Reserved
[2017-02-19 16:21] VITALS: BP 140/99
== END 2017-02-19 16:20 | disposition home or self-care (01) ==
LOC: ER 09:25
DX: R07.89 Other chest pain (principal); R00.0 Tachycardia, unspecified; R07.81 Pleurodynia; R60.0 Localized edema; R09.02 Hypoxemia; Z88.5 Allergy status to narcotic agent
CPT/HCPCS: 93005; 94640; 99285; 36415; 82553; 82550; 85025; 85610; 80053; 84484; 93971; 71101; 71275; 93010; A9270; J7620

== ENCOUNTER 2017-07-15 01:48 | Inpatient (IN) | payer MEDICARE, BC, MEDICAID ==
--- NOTE | 2017-07-15 02:29 | ER Document Report ---
ED General - General Chief Complaint: Shortness Of Breath Stated Complaint: DIFFICULTY BREATHING Time Seen by Provider: 07/15/17 02:18 Notes: Patient is a 69-year-old female who presents from shelter because of some difficulty breathing. Patient does have some dementia but is able to provide some history. She says that she is just felt a little bit unwell for last couple days. Tonight she is having difficulty breathing. [facility] was called. They placed on oxygen and her to the ER. She does not wear oxygen at the shelter. She was initially 80% on room air when the paramedics arrived. She is currently 98% on 2 L of oxygen. She denies any chest pain. No fevers. No other complaints at this time. She says she feels well. She does have history of A. fib. She is on Coumadin. According to records she does have a history of pulmonary hypertension. TRAVEL OUTSIDE OF THE [place] IN LAST 30 DAYS: No - Related Data Allergies/Adverse Reactions: codeine [Codeine] Allergy (Verified 07/10/12 20:33) Home Medications: Current Home Medications Famotidine [Pepcid 20 mg Tablet] 20 mg PO Q12 07/15/17 [History] Furosemide 20 mg PO BID 07/15/17 [History] Lisinopril [Zestril] 10 mg PO DAILY 07/15/17 [History] Metoprolol Tartrate 50 mg PO Q12 07/15/17 [History] Nitroglycerin [Nitrostat 0.4 mg (1/150 Gr) Tabs 25/Bottle] 1 tab SL Q5MP PRN [History] Nystatin 1 applic PO Q12 07/15/17 [History] Sertraline HCl 50 mg PO DAILY 07/15/17 [History] Warfarin Sodium [Coumadin 3 mg Tablet] 3 mg PO DAILY 07/15/17 [History] Warfarin Sodium [Coumadin 4 mg Tablet] 4 mg PO DAILY 07/15/17 [History] Past Medical History - Social History Smoking Status: Never Smoker Frequency of alcohol use: None Drug Abuse: None Family History: Reviewed & Not Pertinent - Past Medical History Cardiac Medical History: Reports: Hx Atrial Fibrillation, Hx DVT, Hx Hypercholesterolemia, Hx Hypertension Renal/ Medical History: Denies: Hx Peritoneal Dialysis Psychiatric Medical History: Reports: Hx Dementia Past Surgical History: Reports: Other - Thoracic aortic aneurysm repair 2 - Immunizations Hx Diphtheria, Pertussis, Tetanus Vaccination: Yes Review of Systems - Review of Systems Notes: My Normal Review Basic REVIEW OF SYSTEMS: CONSTITUTIONAL : Denies fever, chills, or sweats. Denies recent illness. EENT: Denies eye, ear, throat, or mouth pain or symptoms. Denies nasal or sinus congestion. CARDIOVASCULAR: Denies chest pain. RESPIRATORY: Cold breathing GASTROINTESTINAL: Denies abdominal pain. Denies nausea, vomiting, or diarrhea. MUSCULOSKELETAL: Denies neck or back pain or joint pain or swelling. SKIN: Denies rash or skin lesions. NEUROLOGICAL: Denies altered mental status or loss of consciousness. Denies headache. Denies weakness or paralysis or loss of use of either side. Denies problems with gait or speech. Denies sensory or motor loss. ALL OTHER SYSTEMS REVIEWED AND NEGATIVE. Physical Exam - Vital signs Vitals: Resp Pulse Ox 25 H 96 07/15/17 02:07 07/15/17 02:07 - Notes Notes: General Appearance: Well nourished, alert, cooperative, no acute distress, no obvious discomfort. Well Appearing. Speaking in full sentences without distress. Vitals: reviewed, See vital signs table. Head: no swelling or tenderness to the head Eyes: PERRL, EOMI, Conjuctiva clear Mouth: No decreasd moisture Throat: No tonsillar inflammation, No airway obstruction, No lymphadenopathy Lungs: No wheezing, No rales, No rhonci, No accessory muscle use, good air exchange bilaterally. Heart: Normal rate, Regular rythm, No murmur, no rub Abdomen: Normal BS, soft, No rigidity, No abdominal tenderness, No guarding, no rebound, no abdominal masses, no organomegaly Extremities: strength 5/5 in all extremities, good pulses in all extremities, no swelling or tenderness in the extremities, no edema. Skin: warm, dry, appropriate color, no rash Neuro: speech clear, oriented x 3, normal affect, responds appropriately to questions. Course - Re-evaluation Re-evalutation: 07/15/17 04:41 CTA showed no evidence of PE. Patient's aortic dissection is unchanged. There is not much comment on the lung ortega. I looked at the lung ortega patient does have a ground glass appearance consistent with probable's pulmonary edema which would make sense being that she had pulmonary effusion on her chest x- ray. Suspect this may be what is causing her difficulty breathing. I really do not see another causes why she could have the hypoxemia at this time other than her history of pulmonary hypertension. She is [place] no chest pain. Her blood pressure is normal. She is well-appearing as long as she is wearing oxygen. She has [place] no wheezing and therefore I do not think breathing treatments will be of any help. I have given her a small dose of Lasix. I do not want to give her a large dose of Lasix upfront being that she underwent a contrasted CT scan. I have spoken to the hospitalist, Dr. Williamson, who agrees to accept the patient. Dictation of this chart was performed using voice recognition software; therefore, there may be some unintended grammatical errors. - Vital Signs Vital signs: Temp Pulse Resp BP Pulse Ox 98.1 F 77 16 103/61 100 07/15/17 20:22 07/15/17 20:22 07/15/17 20:22 07/15/17 20:22 07/15/17 20:22 - Laboratory Result Diagrams: 07/15/17 01:58 07/15/17 14:36 Laboratory results interpreted by me: 07/15/17 07/15/17 07/15/17 01:58 01:58 01:58 RBC 3.55 L Hgb 11.3 L Hct 33.7 L RDW 16.6 H Plt Count 106 L Seg Neuts % (Manual) 84 H Band Neutrophils % 2 L Lymphocytes % (Manual) 7 L Abs Lymphs (Manual) 0.4 L PT 32.4 H Potassium 3.5 L BUN 27 H Glucose 122 H Total Bilirubin 2.3 H Direct Bilirubin 0.7 H AST 51 H Alkaline Phosphatase 152 H - EKG Interpretation by Me Additional EKG results interpreted by me: 07/15/17 02:47 EKG is reviewed and interpreted by me. EKG shows sinus tachycardia with rate of 104. 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 With this block she has ST segment depression T-wave inversions in the anterior precordial leads. The ST segment depression is a little bit more in leads V2 and V3 than before. Discharge - Discharge Clinical Impression: Hypoxemia Pulmonary edema Qualifiers: Chronicity: acute Qualified Code(s): J81.0 - Acute pulmonary edema Condition: Stable Disposition: ADMITTED OBSERVATION Admitting Provider: Hospitalist Unit Admitted: Telemetry
--- NOTE | 2017-07-15 02:48 | RADIOLOGY REPORT (SQ) ---
EXAM DESCRIPTION: CHEST SINGLE VIEW COMPLETED DATE/TIME: 07/15/2017 2:36 am REASON FOR STUDY: dyspnea COMPARISON: Rib series 02/19/2017. CTA chest 02/19/2017. Chest x-ray 12/13/2016. EXAM PARAMETERS: NUMBER OF VIEWS: One view. TECHNIQUE: Single frontal radiographic view of the chest acquired. RADIATION DOSE: NA LIMITATIONS: None. FINDINGS: LUNGS AND PLEURA: Prominent interstitial markings are likely chronic. There is blunting o f the left costophrenic angle, suggestive of a small pleural effusion. Mild bibasilar atelectasis. No pneumothorax. MEDIASTINUM AND HILAR STRUCTURES: Known thoracic aortic aneurysm, not well evaluated by plain radiogr aph. HEART AND VASCULAR STRUCTURES: The heart remains enlarged. No overt vascular congestion. BONES: Degenerative changes in the spine and at bilateral shoulders. HARDWARE: Sternotomy wires are present. IMPRESSION: Cardiomegaly. Small left pleural effusion. Mild bibasilar atelectasis. TECHNICAL DOCUMENTATION: JOB ID: [id number] [place]-[id number] 2010 [employer]- All Rights Reserved
[2017-07-15 02:53] LABS: HEMATOCRIT 33.7 % (36.0-47.0); HEMOGLOBIN 11.3 g/dL (12.0-15.5); HGB HCT DIFFERENCE 0.2; MEAN CORPUSCULAR HEMOGLOBIN 31.8 pg (27.0-33.4); MEAN CORPUSCULAR HGB CONC 33.5 g/dL (32.0-36.0); MEAN CORPUSCULAR VOLUME 95 fl (80-97); RED BLOOD COUNT 3.55 10^6/uL (3.72-5.28); RED CELL DISTRIBUTION WIDTH 16.6 % (11.5-14.0); WHITE BLOOD COUNT 6.1 10^3/uL (4.0-10.5)
[2017-07-15 03:06] LABS: ALANINE AMINOTRANSFERASE 52 U/L (9-52); ALBUMIN 3.6 g/dL (3.5-5.0); ALKALINE PHOSPHATASE 152 U/L (38-126); ANION GAP 14 (5-19); ASPARTATE AMINO TRANSFERASE 51 U/L (14-36); BILIRUBIN,DIRECT 0.7 mg/dL (0.0-0.4); BILIRUBIN,TOTAL 2.3 mg/dL (0.2-1.3); BLOOD UREA NITROGEN 27 mg/dL (7-20); CARBON DIOXIDE 26 mmol/L (22-30); CHLORIDE 102 mmol/L (98-107); CREATININE RESULT 0.91 mg/dL (0.52-1.25); GLUCOSE 122 mg/dL (75-110); POTASSIUM 3.5 mmol/L (3.6-5.0); TOTAL PROTEIN 7.4 g/dL (6.3-8.2)
[2017-07-15 03:30] LABS: ABSOLUTE EOSINOPHILS# (MANUAL) 0.1 10^3/uL (0.0-0.6); BAND NEUTROPHILS % (MANUAL) 2 % (3-5); BASOPHILS % (MANUAL) 1 % (0-2); EOSINOPHILS % (MANUAL) 1 % (0-6); LYMPHOCYTES % (MANUAL) 7 % (13-45); TOTAL CELLS COUNTED 100
[2017-07-15 03:31] LABS: ANISOCYTOSIS SLIGHT; POLYCHROMASIA SLIGHT; TOXIC GRANULATION SLIGHT
[2017-07-15 03:32] LABS: OVALOCYTES SLIGHT; POIKILOCYTOSIS SLIGHT; TEAR DROP CELLS SLIGHT
--- NOTE | 2017-07-15 04:20 | RADIOLOGY REPORT (SQ) ---
EXAM DESCRIPTION: CTA CHEST COMPLETED DATE/TIME: 07/15/2017 3:59 am REASON FOR STUDY: dyspnea, hypoxemia , shortness of breath. COMPARISON: CT angiogram chest 02/19/2017. TECHNIQUE: CT scan of the chest performed using helical scanning technique with dynamic intravenous contrast injection. Images reviewed with lung, soft tissue and bone windows. Reconstructed coronal and sagittal MPR images reviewed. Additional 3 dimensional post-processing performed to develop Maximal Intensity Projection images ([place] P). All images stored on PACS. All CT scanners at this facility use dose modulation, iterative reconstruction, and/or weight based d osing when appropriate to reduce radiation dose to as low as reasonably achievable (ALARA). [facility]: Dose Right [facility]: CareDose [facility]: Dose Right [facility]: Teradose 4D [facility]: ZoomTilt CONTRAST TYPE AND DOSE: 100 mL Isovue 370- low osmolar. Contrast bolus optimized for the pulmonary arteries. Not diagnostic for the aorta. RENAL FUNCTION: Creatinine 0.91. RADIATION DOSE: . LIMITATIONS: There is motion artifact. FINDINGS: LUNGS AND PLEURA: Redemonstration of bilateral changes of pulmonary fibrosis with honeycom álvaro. No consolidation, pleural effusion or pneumothorax. AORTA AND GREAT VESSELS: Known type A thoracic aortic dissection with aneurysmal dilation of the thor acic aorta measuring up to 5.8 cm at the aortic arch. The descending thoracic aorta measures 3.6 cm in diameter. The contrast bolus is not optimized for the evaluation of the thoracic aorta. The main pulmonary artery is dilated. HEART: No pericardial effusion. The heart is enlarged. The patient is status post open heart surgery . PULMONARY ARTERIES: No emboli visualized in the main pulmonary arteries or the segmental branches. HILAR AND MEDIASTINAL STRUCTURES: Right hilar lymph node measuring 1.9 cm. No pathologically enlarge d lymph nodes are seen at the mediastinum. HARDWARE: None in the chest. UPPER ABDOMEN: No significant findings. Limited exam. THYROID AND OTHER SOFT TISSUES: There is a 4 mm calcification at the right thyroid lobe. BONES: Degenerative changes in the spine. 3D MIPS: Confirm above findings. IMPRESSION: 1. No pulmonary emboli. 2. Known type A thoracic aortic dissection with aneurysmal dilation of the thoracic aorta, with measu rements not significantly changed since the prior CT from 02/19/2017. The contrast bolus is not optimi zed for the evaluation of the thoracic aorta. 3. Pulmonary fibrosis. Right hilar adenopathy. 4. Cardiomegaly. Dilation of the main pulmonary artery, may be seen with pulmonary arterial hyperten dee. COMMENT: Quality ID # [id number]: Final reports with documentation of one or more dose reduction techniques (e.g., Automated exposure control, adjustment of the mA and/or kV according to patient size, use of iterative reconstruction technique) TECHNICAL DOCUMENTATION: JOB ID: [id number] [place]-[id number] 2010 [employer]- All Rights Reserved
[2017-07-15] MEDS ORDERED: FUROSEMIDE INJ/PF 20 MG/2 ML SDV IV ONE (04:30)
[2017-07-15 04:31] LABS: PROTHROMBIN TIME 32.4 SEC (11.4-15.4)
[2017-07-15] MEDS ORDERED: ACETAMINOPHEN 325 MG TABLET PO PRN (06:15)
[2017-07-15] MEDS ORDERED: METOPROLOL TARTRATE 25 MG TABLET PO ONE (06:45)
[2017-07-15] MEDS ORDERED: METOPROLOL TARTRATE PF/INJ 5 MG/5 ML SDV IV ONE ×2 (07:01→07:02)
--- NOTE | 2017-07-15 07:28 | PDOC H&P ---
History of Present Illness Admission Date/PCP: 07/15/17 04:50 History of Present Illness: CHRISTINE SOLER is a 77 year old female with past medical history of dementia, pulmonary fibrosis, AAA with repair, A. fib, DVT who presents to the emergency department with shortness of breath. Patient is a resident of [facility] and over the last 6 weeks has lost about 30 pounds. Daughter does note that she has had some lower extremity swelling. Patient does suffer from multiple falls. Patient apparently at the [facility] complained of some shortness of breath. Patient was never noted to be febrile. In the emergency department patient received a CTA which revealed pulmonary fibrosis and Groundglass infiltrates consistent with possible edema. She is referred to hospital service for ongoing hypoxia. Past Medical History Cardiac Medical History: Reports: Atrial Fibrillation, DVT, Hyperlipidema, Hypertension, Other - Severe pulmonary hypertension Pulmonary Medical History: Reports: Other - Pulmonary fibrosis Psychiatric Medical History: Reports: Dementia Past Surgical History Past Surgical History: Reports: Other - Thoracic aortic aneurysm repair 2 Social History Smoking Status: Never Smoker Frequency of Alcohol Use: None Hx Recreational Drug Use: No Drugs: None Hx Prescription Drug Abuse: No - Advance Directive Resuscitation Status: Do Not Resuscitate Surrogate healthcare decision maker:: Inge Luther Family History Family History: CAD, Malignancy Parental Family History Reviewed: Yes Children Family History Reviewed: Yes Sibling(s) Family History Reviewed.: Yes Medication/Allergy Home Medications: Sertraline HCl [Zoloft 50 mg Tablet] 50 mg PO DAILY 12/13/16 Famotidine [Pepcid 20 mg Tablet] 20 mg PO Q12 tablet 12/17/16 Lisinopril [Prinivil] 10 mg PO DAILY #30 tablet 12/17/16 Metoprolol Tartrate [Lopressor 25 mg Tablet] 50 mg PO Q12A #0 tablet 12/17/16 Nystatin [Mycostatin Topical Powder 15 gm] 1 applic TP Q12 bottle 12/17/16 Warfarin Sodium [Coumadin 5 mg Tablet] 3 mg PO QHS #0 12/17/16 Allergies/Adverse Reactions: codeine [Codeine] Allergy (Verified 07/10/12 20:33) Review of Systems ROS unobtainable: Due to mental status Physical Exam Vital Signs: Temp Pulse Resp BP Pulse Ox 97.8 F 98 20 121/66 97 07/15/17 02:12 07/15/17 02:12 07/15/17 06:01 07/15/17 06:01 07/15/17 05:01 Intake & Output 07/13/17 07/14/17 07/15/17 06:59 06:59 06:59 Weight 46 kg General appearance: PRESENT: mild distress, thin, other - Cachectic and chronically ill-appearing Head exam: PRESENT: atraumatic, normocephalic, other - Temporal muscle wasting Eye exam: PRESENT: conjunctiva pink, EOMI, PERRLA. ABSENT: scleral icterus Ear exam: PRESENT: normal external ear exam Mouth exam: PRESENT: moist, tongue midline Neck exam: ABSENT: JVD, lymphadenopathy, thyromegaly, tracheal deviation Respiratory exam: PRESENT: clear to auscultation staci, symmetrical, unlabored. ABSENT: rales, rhonchi, tachypnea, wheezes Cardiovascular exam: PRESENT: irregular rhythm, +S1, +S2, systolic murmur. ABSENT: diastolic murmur, rubs Pulses: PRESENT: normal dorsalis pedis pul Vascular exam: PRESENT: normal capillary refill GI/Abdominal exam: PRESENT: hyperactive bowel sounds, normal bowel sounds, soft. ABSENT: distended, guarding, mass, Fried's sign, organolmegaly, rebound , tenderness Rectal exam: PRESENT: deferred Extremities exam: PRESENT: full ROM. ABSENT: calf tenderness, clubbing, pedal edema Neurological exam: PRESENT: alert, awake, oriented to person, CN II-XII grossly intact. ABSENT: motor sensory deficit Psychiatric exam: PRESENT: appropriate affect, normal mood. ABSENT: homicidal ideation, suicidal ideation Skin exam: PRESENT: dry, intact, warm. ABSENT: cyanosis, rash Results Impressions: Chest X-Ray 07/15/17 02:18 IMPRESSION: Cardiomegaly. Small left pleural effusion. Mild bibasilar atelectasis. Chest/Abdomen CTA 07/15/17 03:29 IMPRESSION: 1. No pulmonary emboli. 2. Known type A thoracic aortic dissection with aneurysmal dilation of the thoracic aorta, with measurements not significantly changed since the prior CT from 02/19/2017. The contrast bolus is not optimized for the evaluation of the thoracic aorta. 3. Pulmonary fibrosis. Right hilar adenopathy. 4. Cardiomegaly. Dilation of the main pulmonary artery, may be seen with pulmonary arterial hypertension. Assessment & Plan - Diagnosis (1) Hypoxemia Is this a current diagnosis for this admission?: Yes Plan: Feel this is likely secondary to symptomatic pulmonary hypertension and pulmonary fibrosis. Will monitor patient for signs of pulmonary fibrosis flare and consider steroids at that time. At this time, will give patient light diuretic pheresis she does appear to be mildly volume overloaded (2) Pulmonary edema Qualifiers: Chronicity: acute Qualified Code(s): J81.0 - Acute pulmonary edema Is this a current diagnosis for this admission?: Yes (3) Anemia of chronic disease Is this a current diagnosis for this admission?: Yes (4) Atrial fibrillation Qualifiers: Atrial fibrillation type: unspecified Qualified Code(s): I48.91 - Unspecified atrial fibrillation Is this a current diagnosis for this admission?: Yes Plan: Continue patient's home metoprolol. At this time I do not recommend the patient continue on Coumadin as she has a history of multiple falls. (5) Dementia Qualifiers: Dementia type: unspecified type Dementia behavioral disturbance: without behavioral disturbance Qualified Code(s): F03.90 - Unspecified dementia without behavioral disturbance Is this a current diagnosis for this admission?: Yes Plan: Patient appears to be declining and will consult palliative care. (6) History of DVT (deep vein thrombosis) Is this a current diagnosis for this admission?: Yes (7) Hypertension Qualifiers: Hypertension type: essential hypertension Qualified Code(s): I10 - Essential (primary) hypertension Is this a current diagnosis for this admission?: Yes (8) Pulmonary hypertension Is this a current diagnosis for this admission?: Yes (9) Thoracic aortic aneurysm Qualifiers: Presence of rupture: without rupture Qualified Code(s): I71.2 - Thoracic aortic aneurysm, without rupture Is this a current diagnosis for this admission?: Yes (10) Do not resuscitate discussion Is this a current diagnosis for this admission?: Yes - Time Time Spent: 30 to 50 Minutes Medications reviewed and adjusted accordingly: Yes Anticipated discharge: SNF Within: within 48 hours - Inpatient Certification Based on my medical assessment, after consideration of the patient's comorbidities, presenting symptoms, or acuity I expect that the services needed warrant INPATIENT care.: No I certify that my determination is in accordance with my understanding of Medicare's requirements for reasonable and necessary INPATIENT services [42 CFR 412.3e].: No Post Hospital Care: D/C Manager Category Documentation
--- NOTE | 2017-07-15 07:48 | EKG REPORT ---
SEVERITY:- ABNORMAL ECG - ATRIAL FIBRILLATION RIGHT BUNDLE BRANCH BLOCK LEFT ANTERIOR FASCICULAR BLOCK : Confirmed by: Davis Silver MD 15-Jul-2017 07:47:27
[2017-07-15 09:02] LABS: APPEARANCE,URINE CLOUDY; BILIRUBIN,URINE NEGATIVE (NEGATIVE); GLUCOSE, URINE NEGATIVE (NEGATIVE); KETONES,URINE NEGATIVE (NEGATIVE); LEUKOCYTE ESTERASE,URINE LARGE (NEGATIVE); NITRITE,URINE POSITIVE (NEGATIVE); PROTEIN,URINE NEGATIVE (NEGATIVE); URINE SPECIFIC GRAVITY 1.031; UROBILINOGEN,URINE NEGATIVE mg/dL (<2.0)
[2017-07-15] MEDS ORDERED: ASPIRIN 81 MG TABLET, ENT COATED PO SCH (10:00)
[2017-07-15] MEDS ORDERED: FUROSEMIDE INJ/PF 20 MG/2 ML SDV IV SCH (10:00)
[2017-07-15] MEDS: FAMOTIDINE 20 MG TABLET PO SCH ×2 (10:28→22:05)
[2017-07-15] MEDS: SERTRALINE HCL 50 MG TABLET PO SCH (10:29)
[2017-07-15] MEDS: LISINOPRIL 10 MG TABLET PO SCH (10:29)
[2017-07-15] MEDS: NYSTATIN TOPICAL POWDER 15 GM TP SCH ×2 (11:14→22:05)
--- NOTE | 2017-07-15 12:12 | PROGRESS NOTE E ---
Progress Note NAME: CHRISTINE SOLER : 1940 AGE: 77Y DATE: 07/15/2017 ROOM: ED04 SUBJECTIVE: Ms. Soler is currently lying on the stretcher. She is still in the ER waiting for a bed. The patient states that she feels much better than when she came in. The patient is breathing and able to fully complete sentences. There have been no reported episodes of vomiting nor diarrhea. The patient admits to not having much of an appetite. The patient has been afebrile. Her blood pressures have been in a decent range and the patient does not voice any other concerns at this time. REVIEW OF SYSTEMS: Rest of the review of systems negative. MEDICATIONS: Have been reviewed. OBJECTIVE: GENERAL: The patient is a 77-year-old female who is awake and alert. She is oriented to person, place, time, and situation. She is verbal, conversational, and does not appear to be in any acute distress. VITAL SIGNS: Temperature 97.9, pulse 102, respirations 16, blood pressure 130/74, oxygen saturation is 99% on 2 L nasal cannula. SKIN: Warm and dry. No rash. She is not diaphoretic. HEENT: Pupils equal, round, reactive to light and accommodation. Conjunctivae are pink. No JVP. CARDIOVASCULAR: Heart is irregularly irregular. There is no rub. CHEST: Clear, symmetrical, unlabored. ABDOMEN: Soft, nontender, nondistended. BACK: No CVA tenderness or sacral edema. EXTREMITIES: No clubbing, cyanosis, or edema. PSYCHIATRIC: Appropriate affect. Pleasant mood. DIAGNOSTICS: Lab values are as follow: Hematology obtained on 07/15/2017: WBCs 8.1, hemoglobin is 11.3, hematocrit is 33.7, and platelet count is 106,000. Coagulation obtained on 07/15/2017: PT is 32.4, INR is 2.97. Chemistry obtained on 07/15/2017: Sodium is 142, potassium 4.5, chloride is 102, carbon dioxide 26, BUN 27, creatinine is 0.91, glucose 122, calcium is 9.0. IMPRESSION AND PLAN: 1. [id number] DIASTOLIC CONGESTIVE HEART FAILURE. The patient did have noted pulmonary edema, however, this has improved significantly with diuresis. Will give yet another dose of Lasix and monitor the patient's response and follow. 2. ATRIAL FIBRILLATION. The patient is currently rate controlled. Will continue metoprolol. The patient has had multiple falls and therefore Coumadin has been placed on hold for now. This was discussed with the family. 3. ANEMIA OF CHRONIC DISEASE. The patient's hemoglobin is overall stable. 4. [id number] HYPOXEMIC RESPIRATORY FAILURE. This is most likely due to pulmonary hypertension as well as her underlying pulmonary fibrosis. The patient appears to be oxygenating well at this time. Will continue supplemental O2 and follow. 5. HYPERTENSION. Blood pressure has been in acceptable range. Will continue current medication. 6. THORACIC AORTIC ANEURYSM APPEARS STABLE. 7. SIGNIFICANT WEIGHT LOSS AND FAILURE TO THRIVE. The patient does have palliative care consult. DISPOSITION: The patient is a DNR. Pending patient's symptomatology and diagnostic findings, will reevaluate in the a.m. for possible discharge. Time spent on this followup including assessment, plan, physical examination, patient education, family meeting, and review of records is 35 minutes. DICTATING PHYSICIAN: GABRIEL WHITE NP [id number] PHY#: [id number] ID: [id number] JOB#: [id number] ACCT: [id number] cc: >
[2017-07-15 15:18] LABS: ANION GAP 14 (5-19); BLOOD UREA NITROGEN 26 mg/dL (7-20); CALCIUM 8.8 mg/dL (8.4-10.2); CARBON DIOXIDE 28 mmol/L (22-30); CHLORIDE 99 mmol/L (98-107); CREATININE RESULT 0.97 mg/dL (0.52-1.25); GLUCOSE 137 mg/dL (75-110); POTASSIUM 3.2 mmol/L (3.6-5.0); SODIUM 140.9 mmol/L (137-145)
[2017-07-15] MEDS: METOPROLOL TARTRATE 25 MG TABLET PO SCH (17:40)
--- NOTE | 2017-07-15 23:35 | Progress Note ---
Provider Note Provider Note: Palliative Care Visit 07/15/17 2:20 pm Appreciate palliative care consult for this 6 year old female resident from [facility] who has been admitted with 30 pound weight loss over the past 6 weeks. Her labs completed are stable, with normal protein and albumin levels. Patients daughter is not at hospital at present, nurse states she left a while ago. She gave me her number to call her to discuss her mothers care. Apparently, Mrs. Sharma is much better than when she arrived to hospital. She has diuresed well and is breathing more easily according to notes. At present she is asleep. I will call her daughter to discuss but I have also discussed her with hospice liason who will talk to [facility] when she returns to facility. With current weight loss she may have underlying disease. Her protein and albumin levels do not show protein malnutrition at present, but her liver function tests are elevated and she may have a liver cancer or other malignancy causing the weight loss. If patient returns to facility with Medicare skilled days, liason will follow and ask for palliative consult. Will follow while in [facility].
[2017-07-16] MEDS ORDERED: METOPROLOL TARTRATE 50 MG TABLET ONE (02:11)
[2017-07-16] MEDS ORDERED: METOPROLOL TARTRATE 50 MG TABLET PO ONE (02:30)
[2017-07-16 05:36] LABS: PROTHROMBIN TIME 39.9 SEC (11.4-15.4)
[2017-07-16 05:55] LABS: ANION GAP 14 (5-19); BLOOD UREA NITROGEN 37 mg/dL (7-20); CALCIUM 9.1 mg/dL (8.4-10.2); CARBON DIOXIDE 28 mmol/L (22-30); CHLORIDE 98 mmol/L (98-107); CREATININE RESULT 1.27 mg/dL (0.52-1.25); GLUCOSE 125 mg/dL (75-110); MAGNESIUM 1.8 mg/dL (1.6-2.3); POTASSIUM 3.8 mmol/L (3.6-5.0)
[2017-07-16] MEDS: METOPROLOL TARTRATE 25 MG TABLET PO SCH ×2 (06:57→19:00)
[2017-07-16] MEDS: LISINOPRIL 10 MG TABLET PO SCH (09:47)
[2017-07-16] MEDS: FAMOTIDINE 20 MG TABLET PO SCH ×2 (09:56→23:45)
[2017-07-16] MEDS: SERTRALINE HCL 50 MG TABLET PO SCH (09:56)
[2017-07-16] MEDS: NYSTATIN TOPICAL POWDER 15 GM TP SCH ×2 (09:57→23:45)
[2017-07-16] MEDS ORDERED: ASPIRIN 81 MG TABLET, ENT COATED PO SCH (10:00)
--- NOTE | 2017-07-16 16:12 | PDOC PROGRESS REPORT ---
Subjective Progress Note for:: 07/16/17 Subjective:: This is a 77-year-old female who has had a significant amount of weight loss. She presents with some failure to thrive with 30 pound weight loss last 6 months , increased shortness of breath, history of pulmonary fibrosis with hypoxia, dementia, atrial fibrillation, anemia. Patient had been yelling most of the morning. Reason For Visit: SYMPTOMATIC PULMONARY HYPERTENSION Physical Exam Vital Signs: Temp Pulse Resp BP Pulse Ox 97.7 F 83 18 106/57 L 100 07/16/17 12:25 07/16/17 12:25 07/16/17 12:25 07/16/17 12:25 07/16/17 12:25 Intake & Output 07/15/17 07/16/17 07/17/17 06:59 06:59 06:59 Intake Total 331 Balance 331 Weight 46 kg 52.2 kg General appearance: PRESENT: disheveled, mild distress, thin Head exam: PRESENT: atraumatic, normocephalic Eye exam: PRESENT: PERRLA Ear exam: PRESENT: normal external ear exam Mouth exam: PRESENT: moist, tongue midline Neck exam: ABSENT: carotid bruit, JVD, lymphadenopathy, thyromegaly Respiratory exam: PRESENT: accessory muscle use, rhonchi Cardiovascular exam: PRESENT: RRR. ABSENT: diastolic murmur, rubs, systolic murmur Pulses: PRESENT: normal dorsalis pedis pul Vascular exam: PRESENT: normal capillary refill GI/Abdominal exam: PRESENT: normal bowel sounds, soft. ABSENT: distended, guarding, mass, organolmegaly, rebound, tenderness Rectal exam: PRESENT: deferred Extremities exam: PRESENT: +1 edema Neurological exam: PRESENT: alert, altered, awake Psychiatric exam: PRESENT: agitated Focused psych exam: PRESENT: psychomotor agitation, restlessness Skin exam: PRESENT: skin tears Results Laboratory Results: 07/16/17 04:23 07/16/17 04:23 Sodium 140.0 Potassium 3.8 Chloride 98 Carbon Dioxide 28 Anion Gap 14 BUN 37 H Creatinine 1.27 H Est GFR ( Amer) 49 L Est GFR (Non-Af Amer) 41 L Glucose 125 H Calcium 9.1 Magnesium 1.8 07/15/17 07/15/17 07/15/17 07:43 14:36 20:32 Troponin I 0.045 0.054 0.097 Impressions: Chest X-Ray 07/15/17 02:18 IMPRESSION: Cardiomegaly. Small left pleural effusion. Mild bibasilar atelectasis. Chest/Abdomen CTA 07/15/17 03:29 IMPRESSION: 1. No pulmonary emboli. 2. Known type A thoracic aortic dissection with aneurysmal dilation of the thoracic aorta, with measurements not significantly changed since the prior CT from 02/19/2017. The contrast bolus is not optimized for the evaluation of the thoracic aorta. 3. Pulmonary fibrosis. Right hilar adenopathy. 4. Cardiomegaly. Dilation of the main pulmonary artery, may be seen with pulmonary arterial hypertension. Assessment & Plan - Diagnosis (1) Failure to thrive in adult Is this a current diagnosis for this admission?: Yes Plan: Long discussion with patient's POA who is her life long friend. States that this patient has 2 adult sons but they are not very active in her care. I have discussed hospice services possibly comfort measures only due to her aspiration status. She wants to discuss with her son's first before she has to make a decision. (2) Dementia Qualifiers: Dementia type: vascular dementia Dementia behavioral disturbance: without behavioral disturbance Qualified Code(s): F01.50 - Vascular dementia without behavioral disturbance Is this a current diagnosis for this admission?: Yes (3) Weakness Is this a current diagnosis for this admission?: Yes (4) Do not resuscitate discussion Is this a current diagnosis for this admission?: Yes Plan: Discussed comfort care with POA and encouraged a family meeting with her and the patient's 2 sons. - Time Time Spent with patient: 15-24 minutes
[2017-07-16] MEDS ORDERED: RINGERS SOLUTION,LACTATED 250 ML IV ONE (19:00)
[2017-07-16] MEDS ORDERED: NORMAL SALINE 500 ML IV ONE ×2 (20:00→21:00)
[2017-07-17] MEDS: METOPROLOL TARTRATE 25 MG TABLET PO SCH ×2 (06:22→18:17)
--- NOTE | 2017-07-17 09:10 | PDOC PROGRESS REPORT ---
Subjective Reason For Visit: SYMPTOMATIC PULMONARY HYPERTENSION Physical Exam Vital Signs: Temp Pulse Resp BP Pulse Ox 100.3 F 108 H 20 119/69 95 07/17/17 07:37 07/17/17 07:37 07/17/17 07:37 07/17/17 07:37 07/17/17 07:37 Intake & Output 07/16/17 07/17/17 07/18/17 06:59 06:59 06:59 Intake Total 331 1970 Balance 331 1970 Weight 52.2 kg 59.5 kg Results Laboratory Results: 07/16/17 04:23 07/15/17 07/15/17 07/15/17 07:43 14:36 20:32 Troponin I 0.045 0.054 0.097 Impressions: Chest X-Ray 07/15/17 02:18 IMPRESSION: Cardiomegaly. Small left pleural effusion. Mild bibasilar atelectasis. Chest/Abdomen CTA 07/15/17 03:29 IMPRESSION: 1. No pulmonary emboli. 2. Known type A thoracic aortic dissection with aneurysmal dilation of the thoracic aorta, with measurements not significantly changed since the prior CT from 02/19/2017. The contrast bolus is not optimized for the evaluation of the thoracic aorta. 3. Pulmonary fibrosis. Right hilar adenopathy. 4. Cardiomegaly. Dilation of the main pulmonary artery, may be seen with pulmonary arterial hypertension. Assessment & Plan - Diagnosis (1) Failure to thrive in adult Is this a current diagnosis for this admission?: Yes (2) Dementia Qualifiers: Dementia type: vascular dementia Dementia behavioral disturbance: without behavioral disturbance Qualified Code(s): F01.50 - Vascular dementia without behavioral disturbance Is this a current diagnosis for this admission?: Yes (3) Weakness Is this a current diagnosis for this admission?: Yes (4) Do not resuscitate discussion Is this a current diagnosis for this admission?: Yes
[2017-07-17 09:15] LABS: PROTHROMBIN TIME 30.4 SEC (11.4-15.4)
[2017-07-17] MEDS ORDERED: RINGERS SOLUTION 1,000 ML IV PRN (09:26)
[2017-07-17] MEDS: LISINOPRIL 10 MG TABLET PO SCH (10:09)
[2017-07-17] MEDS: CEFTRIAXONE 1 GM/D5W RTU 1 GM/50 ML RTUPB IV SCH (10:21)
[2017-07-17] MEDS: FAMOTIDINE 20 MG TABLET PO SCH ×2 (10:22→22:56)
[2017-07-17] MEDS: NYSTATIN TOPICAL POWDER 15 GM TP SCH ×2 (10:22→22:56)
[2017-07-17] MEDS: SERTRALINE HCL 50 MG TABLET PO SCH (10:22)
[2017-07-17] MEDS ORDERED: RINGERS SOLUTION,LACTATED 1,000 ML IV PRN (10:33)
[2017-07-17 15:55] LABS: HEMATOCRIT 30.7 % (36.0-47.0); HEMOGLOBIN 10.3 g/dL (12.0-15.5); HGB HCT DIFFERENCE 0.2; MEAN CORPUSCULAR HEMOGLOBIN 32.2 pg (27.0-33.4); MEAN CORPUSCULAR HGB CONC 33.7 g/dL (32.0-36.0); MEAN CORPUSCULAR VOLUME 96 fl (80-97); RED BLOOD COUNT 3.21 10^6/uL (3.72-5.28); WHITE BLOOD COUNT 8.5 10^3/uL (4.0-10.5)
--- NOTE | 2017-07-17 17:54 | RADIOLOGY REPORT (SQ) ---
EXAM DESCRIPTION: CHEST PA/LAT COMPLETED DATE/TIME: 07/17/2017 5:39 pm REASON FOR STUDY: r/o APNA COMPARISON: 07/15/2017 EXAM PARAMETERS: NUMBER OF VIEWS: two views TECHNIQUE: Digital Frontal and Lateral radiographic views of the chest acquired. RADIATION DOSE: NA LIMITATIONS: Suboptimal patient positioning on the lateral image. FINDINGS: LUNGS AND PLEURA: Re- demonstration of fibrotic changes. No new focal consolidation or pn eumothorax. MEDIASTINUM AND HILAR STRUCTURES: Stable mediastinal contours in this patient with known thoracic aor tic aneurysm. HEART AND VASCULAR STRUCTURES: Stable cardiomegaly. Wall vasculature. BONES: No acute findings. HARDWARE: Sternotomy wires and right axillary surgical clips. OTHER: No other significant finding. IMPRESSION: Stable radiographic appearance of the chest, again demonstrating cardiomegaly and pulmon melody fibrosis. TECHNICAL DOCUMENTATION: JOB ID: [id number] [employer]- All Rights Reserved
[2017-07-18 06:24] LABS: ANION GAP 10 (5-19); BLOOD UREA NITROGEN 43 mg/dL (7-20); CALCIUM 8.9 mg/dL (8.4-10.2); CARBON DIOXIDE 29 mmol/L (22-30); CHLORIDE 101 mmol/L (98-107); CREATININE RESULT 1.24 mg/dL (0.52-1.25); GLUCOSE 98 mg/dL (75-110); POTASSIUM 3.9 mmol/L (3.6-5.0)
[2017-07-18] MEDS: METOPROLOL TARTRATE 25 MG TABLET PO SCH ×2 (07:12→18:46)
[2017-07-18] MEDS: NYSTATIN TOPICAL POWDER 15 GM TP SCH ×2 (09:53→22:22)
[2017-07-18] MEDS: CEFTRIAXONE 1 GM/D5W RTU 1 GM/50 ML RTUPB IV SCH (09:54)
[2017-07-18] MEDS: SERTRALINE HCL 50 MG TABLET PO SCH (09:54)
[2017-07-18] MEDS: FAMOTIDINE 20 MG TABLET PO SCH ×2 (09:54→22:22)
--- NOTE | 2017-07-18 11:38 | PDOC PROGRESS REPORT ---
Subjective Progress Note for:: 07/18/17 Subjective:: This is a 77-year-old female who has had a significant amount of weight loss. She presents with some failure to thrive with 30 pound weight loss last 6 months , increased shortness of breath, history of pulmonary fibrosis with hypoxia, dementia, atrial fibrillation, anemia. Patient became hypotensive received IV fluids throughout the night heart rate little more tacy had start IV fluids on her today at a rate of 75 07/18/17 seems to be a little more awake arousable talkative family in the room who is in agreement to send patient back to the snf with full service hospice for her failure to thrive. She did have a final urine culture that showed E. coli E BSL resistant to Rocephin but was sensitive to Zosyn so started her on that Reason For Visit: UTI suspected colonization at first however today urine cultures are sensitive to Zosyn so I have started it on 07/18/2017. Physical Exam Vital Signs: Temp Pulse Resp BP Pulse Ox 97.6 F 94 18 110/70 93 07/18/17 07:36 07/18/17 07:36 07/18/17 07:36 07/18/17 07:36 07/18/17 07:36 Intake & Output 07/17/17 07/18/17 07/19/17 06:59 06:59 06:59 Intake Total 1050 560 Balance 1050 560 Weight 59.5 kg 55.6 kg General appearance: PRESENT: no acute distress, thin Head exam: PRESENT: atraumatic Mouth exam: PRESENT: moist Teeth exam: PRESENT: poor dentation Respiratory exam: PRESENT: decreased breath sounds, rhonchi, unlabored GI/Abdominal exam: PRESENT: normal bowel sounds, soft. ABSENT: distended, guarding, mass, organolmegaly, rebound, tenderness Rectal exam: PRESENT: deferred Extremities exam: PRESENT: tenderness. ABSENT: full ROM Musculoskeletal exam: PRESENT: normal inspection. ABSENT: ambulatory Neurological exam: PRESENT: alert, altered Psychiatric exam: PRESENT: appropriate affect Focused psych exam: PRESENT: psychomotor agitation Skin exam: PRESENT: dry, intact, warm. ABSENT: cyanosis, rash Results Laboratory Results: 07/17/17 15:38 07/18/17 05:21 07/17/17 07/18/17 15:38 05:21 WBC 8.5 RBC 3.21 L Hgb 10.3 L Hct 30.7 L MCV 96 MCH 32.2 MCHC 33.7 RDW 17.0 H Plt Count 90 L Sodium 140.0 Potassium 3.9 Chloride 101 Carbon Dioxide 29 Anion Gap 10 BUN 43 H Creatinine 1.24 Est GFR ( Amer) 51 L Est GFR (Non-Af Amer) 42 L Glucose 98 Calcium 8.9 Impressions: Chest/Abdomen CTA 07/15/17 03:29 IMPRESSION: 1. No pulmonary emboli. 2. Known type A thoracic aortic dissection with aneurysmal dilation of the thoracic aorta, with measurements not significantly changed since the prior CT from 02/19/2017. The contrast bolus is not optimized for the evaluation of the thoracic aorta. 3. Pulmonary fibrosis. Right hilar adenopathy. 4. Cardiomegaly. Dilation of the main pulmonary artery, may be seen with pulmonary arterial hypertension. Chest X-Ray 07/17/17 00:00 IMPRESSION: Stable radiographic appearance of the chest, again demonstrating cardiomegaly and pulmonary fibrosis. Assessment & Plan - Diagnosis (1) Do not resuscitate discussion Is this a current diagnosis for this admission?: Yes Plan: Discussed comfort care with POA and encouraged patient may return back to the facility with full service hospice for frequent hospitalizations multidrug- resistant UTIs and failure to thrive with significant amount of weight loss. (2) UTI (urinary tract infection) Qualifiers: Urinary tract infection type: site unspecified Hematuria presence: without hematuria Qualified Code(s): N39.0 - Urinary tract infection, site not specified Is this a current diagnosis for this admission?: Yes Plan: Urine specimen on admission showed E. coli cultures greater than 100,000 colonization. Patient was not treated however given the fact that she is little more tachycardic, hypotensive we will start IV antibiotics 07/17/17 Rocephin for suspected chronic UTIs patient was started on LR due to hospitalwide shortage of normal saline . Today urine cultures finalized on Escherichia Coli Esbl. Resistant to Rocephin. Patient was started on Zosyn for sensitivity. (3) Failure to thrive in adult Is this a current diagnosis for this admission?: Yes Plan: Patient altered with adult failure to thrive. Apparently she son Downs pretty significantly in the afternoons throughout the night. Seems somewhat alert and cooperative for me today. Family in agreement with palliative care services patient did have a change in heart rate last night with tachycardia blood pressure dropped down in 80s her metoprolol was been held. Currently she is in A. fib on the monitor will give IV fluid bolus and treat her UTI. Patient started developing some acute respiratory change suspect high risk for aspiration or fluid overload since she received IV boluses throughout the night for tachycardia. Talk with the daughter via telephone who agreed with comfort measures. Was hospice but I will obtain a chest x-ray 07/17/17 to see if there is anything treatable at this time. Today chest x-ray was negative for pneumonia patient's final urine cultures came back positive for E. coli ESBL (4) Dementia Qualifiers: Dementia type: vascular dementia Dementia behavioral disturbance: without behavioral disturbance Qualified Code(s): F01.50 - Vascular dementia without behavioral disturbance Is this a current diagnosis for this admission?: Yes Plan: Severely demented patient with owning. Will attempt to correct UTI possible early sepsis again. Plan discharge back to the facility on Wednesday after treatment of UTI but patient back on her beta-blockers (5) Weakness Is this a current diagnosis for this admission?: Yes Plan: Patient appears to be showing some signs of decline. Will have a conversation with daughter guarding failure to thrive and hospice and comfort measures which she is in agreement with. Today I have regaining final results of her urine culture plan to start patient on Zosyn and see if this will make a difference. Patient was tolerating little more p.o. intake today but she is very frail thin and cachexia very high risk for aspiration frequent multidrug- resistant UTIs. Plan discharge to nursing facility tomorrow if not Wednesday - Plan Summary Plan Summary: Patient will return back to snf when she is medically able. I will go ahead and treat her with some Zosyn today she was started on Rocephin prophylactically but it is resistant. Depending on her outlook and disposition possible transition back to snf with full service hospice but will go ahead and treat this positive urine culture and sensitivity will treat with Zosyn today and possibly return either Wednesday or Wednesday.
[2017-07-18 15:05] LABS: HEMATOCRIT 28.9 % (36.0-47.0); HEMOGLOBIN 9.8 g/dL (12.0-15.5); HGB HCT DIFFERENCE 0.5; MEAN CORPUSCULAR HGB CONC 33.8 g/dL (32.0-36.0); MEAN CORPUSCULAR VOLUME 94 fl (80-97); RED BLOOD COUNT 3.06 10^6/uL (3.72-5.28); RED CELL DISTRIBUTION WIDTH 16.7 % (11.5-14.0); WHITE BLOOD COUNT 6.1 10^3/uL (4.0-10.5)
[2017-07-18] MEDS: PIPERACILLIN SODIUM/TAZOBACTAM 3.375 GM in NORMAL SALINE 100 ML IV SCH ×2 (16:28→22:21)
--- NOTE | 2017-07-18 17:47 | PDOC PROGRESS REPORT ---
Subjective Progress Note for:: 07/17/17 Subjective:: This is a 77-year-old female who has had a significant amount of weight loss. She presents with some failure to thrive with 30 pound weight loss last 6 months , increased shortness of breath, history of pulmonary fibrosis with hypoxia, dementia, atrial fibrillation, anemia. Patient became hypotensive received IV fluids throughout the night heart rate little more tacy had start IV fluids on her today at a rate of 75 Reason For Visit: SYMPTOMATIC PULMONARY HYPERTENSION Physical Exam Vital Signs: Temp Pulse Resp BP Pulse Ox 100.1 F 109 H 18 141/65 H 99 07/17/17 11:29 07/17/17 11:29 07/17/17 11:29 07/17/17 11:29 07/17/17 11:29 Intake & Output 07/16/17 07/17/17 07/18/17 06:59 06:59 06:59 Intake Total 331 1970 240 Balance 331 1970 240 Weight 52.2 kg 59.5 kg General appearance: PRESENT: mild distress, thin. ABSENT: well-nourished Head exam: PRESENT: atraumatic, normocephalic Eye exam: PRESENT: conjunctiva pink, EOMI, PERRLA. ABSENT: scleral icterus Ear exam: PRESENT: normal external ear exam Mouth exam: PRESENT: moist, tongue midline Neck exam: ABSENT: carotid bruit, JVD, lymphadenopathy, thyromegaly Respiratory exam: PRESENT: accessory muscle use. ABSENT: rales, rhonchi, wheezes Cardiovascular exam: PRESENT: tachycardia Pulses: PRESENT: normal dorsalis pedis pul Vascular exam: PRESENT: normal capillary refill GI/Abdominal exam: PRESENT: normal bowel sounds, soft. ABSENT: distended, guarding, mass, organolmegaly, rebound, tenderness Rectal exam: PRESENT: deferred Extremities exam: PRESENT: full ROM. ABSENT: calf tenderness, clubbing, pedal edema Musculoskeletal exam: ABSENT: ambulatory Neurological exam: PRESENT: altered, oriented to person Psychiatric exam: PRESENT: normal mood Focused psych exam: PRESENT: psychomotor agitation Skin exam: PRESENT: dry, intact, warm. ABSENT: cyanosis, rash Results Laboratory Results: 07/16/17 04:23 07/15/17 07/15/17 07/15/17 07:43 14:36 20:32 Troponin I 0.045 0.054 0.097 Impressions: Chest X-Ray 07/15/17 02:18 IMPRESSION: Cardiomegaly. Small left pleural effusion. Mild bibasilar atelectasis. Chest/Abdomen CTA 07/15/17 03:29 IMPRESSION: 1. No pulmonary emboli. 2. Known type A thoracic aortic dissection with aneurysmal dilation of the thoracic aorta, with measurements not significantly changed since the prior CT from 02/19/2017. The contrast bolus is not optimized for the evaluation of the thoracic aorta. 3. Pulmonary fibrosis. Right hilar adenopathy. 4. Cardiomegaly. Dilation of the main pulmonary artery, may be seen with pulmonary arterial hypertension. Assessment & Plan - Diagnosis (1) Failure to thrive in adult Is this a current diagnosis for this admission?: Yes Plan: Patient altered with adult failure to thrive. Apparently she son Downs pretty significantly in the afternoons throughout the night. Seems somewhat alert and cooperative for me today. Family in agreement with palliative care services patient did have a change in heart rate last night with tachycardia blood pressure dropped down in 80s her metoprolol was been held. Currently she is in A. fib on the monitor will give IV fluid bolus and treat her UTI. Patient started developing some acute respiratory change suspect high risk for aspiration or fluid overload since she received IV boluses throughout the night for tachycardia. Talk with the daughter via telephone who agreed with comfort measures. Was hospice but I will obtain a chest x-ray to see if there is anything treatable at this time. (2) Dementia Qualifiers: Dementia type: vascular dementia Dementia behavioral disturbance: without behavioral disturbance Qualified Code(s): F01.50 - Vascular dementia without behavioral disturbance Is this a current diagnosis for this admission?: Yes Plan: Severely demented patient with . Will attempt to correct UTI possible early sepsis again. Plan discharge back to the facility on Wednesday after treatment of UTI but patient back on her beta-blockers (3) Weakness Is this a current diagnosis for this admission?: Yes Plan: Patient appears to be showing some signs of decline. Will have a conversation with daughter guarding. Was hospice and comfort measures. (4) Do not resuscitate discussion Is this a current diagnosis for this admission?: Yes Plan: Discussed comfort care with POA and encouraged a family meeting with her and the patient's 2 sons. (5) UTI (urinary tract infection) Qualifiers: Urinary tract infection type: site unspecified Hematuria presence: without hematuria Qualified Code(s): N39.0 - Urinary tract infection, site not specified Is this a current diagnosis for this admission?: Yes Plan: Urine specimen on admission showed E. coli cultures greater than 100,000 colonization. Patient was not treated however given the fact that she is little more tachycardic, hypotensive we will start IV antibiotics today Rocephin for suspected chronic UTIs patient was started on LR due to hospitalwide shortage of normal saline
[2017-07-19] MEDS: PIPERACILLIN SODIUM/TAZOBACTAM 3.375 GM in NORMAL SALINE 100 ML IV SCH ×4 (02:54→20:44)
[2017-07-19 05:37] LABS: ANION GAP 11 (5-19); BLOOD UREA NITROGEN 36 mg/dL (7-20); CALCIUM 8.7 mg/dL (8.4-10.2); CARBON DIOXIDE 28 mmol/L (22-30); CHLORIDE 102 mmol/L (98-107); GLUCOSE 86 mg/dL (75-110); POTASSIUM 3.8 mmol/L (3.6-5.0); SODIUM 140.8 mmol/L (137-145)
[2017-07-19] MEDS: METOPROLOL TARTRATE 25 MG TABLET PO SCH (06:12)
[2017-07-19] MEDS: NYSTATIN TOPICAL POWDER 15 GM TP SCH ×2 (09:00→21:09)
[2017-07-19] MEDS: FAMOTIDINE 20 MG TABLET PO SCH ×2 (09:00→21:08)
[2017-07-19] MEDS: SERTRALINE HCL 50 MG TABLET PO SCH (09:00)
--- NOTE | 2017-07-19 15:57 | PDOC PROGRESS REPORT ---
Subjective Progress Note for:: 07/19/17 Subjective:: This is a 77-year-old female who has had a significant amount of weight loss. She presents with some failure to thrive with 30 pound weight loss last 6 months , increased shortness of breath, history of pulmonary fibrosis with hypoxia, dementia, atrial fibrillation, anemia. Patient became hypotensive received IV fluids throughout the night heart rate little more tacy had start IV fluids on her today at a rate of 75 Reason For Visit: UTI 77-year-old Physical Exam Vital Signs: Temp Pulse Resp BP Pulse Ox 97.6 F 91 20 112/63 100 07/19/17 11:51 07/19/17 11:51 07/19/17 11:51 07/19/17 11:51 07/19/17 11:51 Intake & Output 07/18/17 07/19/17 07/20/17 06:59 06:59 06:59 Intake Total 560 2118 222 Balance 560 2118 222 Weight 55.6 kg 57.5 kg General appearance: PRESENT: no acute distress, thin. ABSENT: well-nourished Head exam: PRESENT: atraumatic, normocephalic Eye exam: PRESENT: conjunctiva pink, EOMI, PERRLA. ABSENT: scleral icterus Ear exam: PRESENT: normal external ear exam Mouth exam: PRESENT: moist, tongue midline Neck exam: ABSENT: carotid bruit, JVD, lymphadenopathy, thyromegaly Respiratory exam: PRESENT: clear to auscultation staci. ABSENT: rales, rhonchi, wheezes Cardiovascular exam: PRESENT: diastolic murmur, irregular rhythm, rubs, systolic murmur Pulses: PRESENT: normal dorsalis pedis pul Vascular exam: PRESENT: normal capillary refill GI/Abdominal exam: PRESENT: normal bowel sounds, soft. ABSENT: distended, guarding, mass, organolmegaly, rebound, tenderness Rectal exam: PRESENT: deferred Extremities exam: PRESENT: full ROM. ABSENT: calf tenderness, clubbing, pedal edema Neurological exam: PRESENT: alert, awake, oriented to person, CN II-XII grossly intact. ABSENT: motor sensory deficit Psychiatric exam: PRESENT: appropriate affect, normal mood. ABSENT: homicidal ideation, suicidal ideation Focused psych exam: PRESENT: psychomotor agitation Skin exam: PRESENT: dry, intact, warm. ABSENT: cyanosis, rash Results Laboratory Results: 07/18/17 14:50 07/19/17 04:21 07/19/17 04:21 Sodium 140.8 Potassium 3.8 Chloride 102 Carbon Dioxide 28 Anion Gap 11 BUN 36 H Creatinine 0.90 Est GFR ( Amer) > 60 Est GFR (Non-Af Amer) > 60 Glucose 86 Calcium 8.7 Impressions: Chest/Abdomen CTA 07/15/17 03:29 IMPRESSION: 1. No pulmonary emboli. 2. Known type A thoracic aortic dissection with aneurysmal dilation of the thoracic aorta, with measurements not significantly changed since the prior CT from 02/19/2017. The contrast bolus is not optimized for the evaluation of the thoracic aorta. 3. Pulmonary fibrosis. Right hilar adenopathy. 4. Cardiomegaly. Dilation of the main pulmonary artery, may be seen with pulmonary arterial hypertension. Chest X-Ray 07/17/17 00:00 IMPRESSION: Stable radiographic appearance of the chest, again demonstrating cardiomegaly and pulmonary fibrosis. Assessment & Plan - Diagnosis (1) UTI (urinary tract infection) Qualifiers: Urinary tract infection type: site unspecified Hematuria presence: without hematuria Qualified Code(s): N39.0 - Urinary tract infection, site not specified Is this a current diagnosis for this admission?: Yes Plan: Urine specimen on admission showed E. coli cultures greater than 100,000 colonization. Patient was not treated however given the fact that she is little more tachycardic, hypotensive we will start IV antibiotics today Rocephin for suspected chronic UTIs patient was started on LR due to hospitalwide shortage of normal saline (2) Failure to thrive in adult Is this a current diagnosis for this admission?: Yes Plan: Patient altered with adult failure to thrive. Apparently she son Downs pretty significantly in the afternoons throughout the night. Seems somewhat alert and cooperative for me today. Family in agreement with palliative care services patient did have a change in heart rate last night with tachycardia blood pressure dropped down in 80s her metoprolol was been held. Currently she is in A. fib on the monitor will give IV fluid bolus and treat her UTI. Patient started developing some acute respiratory change suspect high risk for aspiration or fluid overload since she received IV boluses throughout the night for tachycardia. Talk with the daughter via telephone who agreed with comfort measures. Was hospice but I will obtain a chest x-ray to see if there is anything treatable at this time. Plan repeat albumin to see if she would qualify for failure to thrive (3) Dementia Qualifiers: Dementia type: vascular dementia Dementia behavioral disturbance: without behavioral disturbance Qualified Code(s): F01.50 - Vascular dementia without behavioral disturbance Is this a current diagnosis for this admission?: Yes Plan: Severely demented patient with ing. Will attempt to correct UTI possible early sepsis again. Plan discharge back to the facility on Wednesday after treatment of UTI but patient back on her beta-blockers (4) Weakness Is this a current diagnosis for this admission?: Yes Plan: Patient appears to be showing some signs of decline. Will have a conversation with daughter guarding. Was hospice and comfort measures. (5) Do not resuscitate discussion Is this a current diagnosis for this admission?: Yes - Plan Summary Plan Summary: 77-year-old female admitted with significant amount of weight loss history of pulmonary fibrosis with hypoxemia and dementia came in with a positive urinary tract infection but it was felt to be colonized so she was treated. However patient developed hypo-tension and some tachycardia throughout the night and yesterday being treated so I had started her back on some fluids we gave her some bolus and I went ahead and start her on some Rocephin. However her blood cultures came back yesterday finalized with E. coli with ESBL resistant to Rocephin so changed her to Zosyn which is sensitive. The only oral medication she can go back is nitrofurantoin. She is multidrug-resistant chronic UTI adult failure to thrive so I will talk with the family about palliative care/ full service hospice. We will repeat her albumin to see if she will qualify for failure to thrive. Plan discharge back to her nursing facility with full service hospice tomorrow we will give her 3 days worth of IV antibiotics. Held IV fluids for nail suspect patient's been hydrated enough heart rates better.
[2017-07-19] MEDS: METOPROLOL TARTRATE 50 MG TABLET PO SCH (17:30)
[2017-07-20] MEDS: PIPERACILLIN SODIUM/TAZOBACTAM 3.375 GM in NORMAL SALINE 100 ML IV SCH ×2 (02:39→08:35)
[2017-07-20] MEDS: METOPROLOL TARTRATE 50 MG TABLET PO SCH (06:08)
[2017-07-20 08:20] VITALS: BP 112/67
[2017-07-20] MEDS: SERTRALINE HCL 50 MG TABLET PO SCH (09:28)
[2017-07-20] MEDS: FAMOTIDINE 20 MG TABLET PO SCH (09:28)
[2017-07-20] MEDS: NYSTATIN TOPICAL POWDER 15 GM TP SCH (09:28)
[2017-07-20] MEDS ORDERED: METOPROLOL TARTRATE 25 MG TABLET PO SCH (10:00)
--- NOTE | 2017-07-20 12:54 | PDOC DISCHARGE SUMMARY ---
General - Admit/Disc Date/PCP Admission Date/Primary Care Provider: 07/17/17 04:50 Discharge Date: 07/20/17 - Discharge Diagnosis (1) Failure to thrive in adult Is this a current diagnosis for this admission?: Yes Summary: Patient with significant amount of weight loss in the setting of pulmonary fibrosis with hypoxemia and advanced dementia. Hypoalbuminemia noted at 2.5G/ DL which is a decrease from her admission albumin level of 3.6 despite nutritional support and assisted feedings as an inpatient. The patient's family was contacted to discuss appropriateness for hospice; they are in agreement and desire to minimize unnecessary procedures and focus on comfort. Patient has been admitted to [facility] who will continue to follow her as an outpatient at [facility]. (2) UTI (urinary tract infection) Is this a current diagnosis for this admission?: Yes Summary: Workup on admission revealed a urinary tract infection; cultures positive for E. coli ESBL. She was initially started on IV Rocephin which was transitioned to Zosyn once sensitivities were reviewed. She received 3 days of treatment and so will not require continued antibiotic therapy upon discharge. (3) Dementia Is this a current diagnosis for this admission?: Yes Summary: Patient with advanced dementia and severe sundowning. Her mentation did improve slightly with treatment of the UTI and fluid resuscitation. She will be discharged to [facility] where she is and establish residents with hospice follow-up. (4) Weakness Summary: Patient with generalized weakness and recent falls. Her Coumadin therapy has been discontinued due to her continued risk of falls and subsequent catastrophic bleeding. The patient's family is aware of this recommendation and in agreement with discontinuing the medication. - Additional Information Resuscitation Status: Do Not Resuscitate Discharge Diet: As Tolerated, Other (Comments) - Aspiration precautions Discharge Activity: Activity As Tolerated, Balance Activity w/Rest, Supervised Activity Home Medications: Famotidine [Pepcid 20 mg Tablet] 20 mg PO Q12 07/15/17 Nitroglycerin [Nitrostat 0.4 mg (1/150 Gr) Tabs 25/Bottle] 1 tab SL Q5MP PRN Nystatin 1 applic PO Q12 07/15/17 Sertraline HCl 50 mg PO DAILY 07/15/17 Metoprolol Tartrate [Lopressor 25 mg Tablet] 12.5 mg PO Q12 #30 tablet 07/20/17 History of Present Illness History of Present Illness: Per H&P by Dr. Williamson: CHRISTINE SOLER is a 77 year old female with past medical history of dementia, pulmonary fibrosis, AAA with repair, A. fib, DVT who presents to the emergency department with shortness of breath. Patient is a resident of [facility] and over the last 6 weeks has lost about 30 pounds. Daughter does note that she has had some lower extremity swelling. Patient does suffer from multiple falls. Patient apparently had half-way complained of some shortness of breath. Patient was never noted to be febrile. In the emergency department patient received a CTA which revealed pulmonary fibrosis and groundglass infiltrates consistent with possible edema. She is referred to hospital service for ongoing hypoxia. Physical Exam Vital Signs: Temp Pulse Resp BP Pulse Ox 97.9 F 89 18 112/67 100 07/20/17 07:23 07/20/17 07:23 07/20/17 07:23 07/20/17 07:23 07/20/17 07:23 Intake & Output 07/19/17 07/20/17 07/21/17 06:59 06:59 06:59 Intake Total 2118 954 Balance 2118 954 Weight 57.5 kg 59 kg General appearance: PRESENT: no acute distress, thin, well-developed Head exam: PRESENT: atraumatic, normocephalic Eye exam: PRESENT: conjunctiva pink, EOMI, PERRLA. ABSENT: scleral icterus Ear exam: PRESENT: normal external ear exam Mouth exam: PRESENT: moist, tongue midline Neck exam: ABSENT: carotid bruit, JVD, lymphadenopathy, thyromegaly Respiratory exam: PRESENT: clear to auscultation staci. ABSENT: rales, rhonchi, wheezes Cardiovascular exam: PRESENT: irregular rhythm. ABSENT: diastolic murmur, rubs , systolic murmur Pulses: PRESENT: normal dorsalis pedis pul Vascular exam: PRESENT: normal capillary refill GI/Abdominal exam: PRESENT: normal bowel sounds, soft. ABSENT: distended, guarding, mass, organolmegaly, rebound, tenderness Rectal exam: PRESENT: deferred Extremities exam: PRESENT: full ROM. ABSENT: calf tenderness, clubbing, pedal edema Neurological exam: PRESENT: alert, awake, oriented to person, CN II-XII grossly intact. ABSENT: motor sensory deficit Psychiatric exam: PRESENT: appropriate affect, normal mood. ABSENT: homicidal ideation, suicidal ideation Skin exam: PRESENT: dry, intact, warm. ABSENT: cyanosis, rash Results Laboratory Results: 07/18/17 14:50 07/19/17 04:21 07/19/17 04:21 Albumin 2.5 L Impressions: Chest/Abdomen CTA 07/15/17 03:29 IMPRESSION: 1. No pulmonary emboli. 2. Known type A thoracic aortic dissection with aneurysmal dilation of the thoracic aorta, with measurements not significantly changed since the prior CT from 02/19/2017. The contrast bolus is not optimized for the evaluation of the thoracic aorta. 3. Pulmonary fibrosis. Right hilar adenopathy. 4. Cardiomegaly. Dilation of the main pulmonary artery, may be seen with pulmonary arterial hypertension. Chest X-Ray 07/17/17 00:00 IMPRESSION: Stable radiographic appearance of the chest, again demonstrating cardiomegaly and pulmonary fibrosis. Plan Discharge Plan: Return to [facility] with Hospice follow-up.
== END 2017-07-20 14:35 | DRG 690 ==
LOC: ER 01:48 → UNDOADMOB 04:50 → EH 04:50 → 3N 13:07 → EH 07-17 04:50 → 3N 07-17 04:50 → OBSVTOIN 07-17 04:50
PROVIDERS: ADMIT Family Medicine; ATTEND Family Medicine
DX: N39.0 Urinary tract infection, site not specified (principal); Z68.1 Body mass index [BMI] 19.9 or less, adult; F05 Delirium due to known physiological condition; R64 Cachexia; I27.23 Pulmonary hypertension due to lung diseases and hypoxia; I10 Essential (primary) hypertension; F01.50 Vascular dementia, unspecified severity, without behavioral disturbance, psychotic disturbance, mood disturbance, and anxiety; I48.91 Unspecified atrial fibrillation; I71.2 Thoracic aortic aneurysm, without rupture; D64.9 Anemia, unspecified; R62.7 Adult failure to thrive; I95.9 Hypotension, unspecified; E88.09 Other disorders of plasma-protein metabolism, not elsewhere classified; B96.20 Unspecified Escherichia coli [E. coli] as the cause of diseases classified elsewhere; R09.02 Hypoxemia; Z66 Do not resuscitate; Z16.19 Resistance to other specified beta lactam antibiotics; R53.1 Weakness; J84.10 Pulmonary fibrosis, unspecified; Z79.01 Long term (current) use of anticoagulants; Z82.49 Family history of ischemic heart disease and other diseases of the circulatory system; Z80.9 Family history of malignant neoplasm, unspecified; Z88.6 Allergy status to analgesic agent; Z86.718 Personal history of other venous thrombosis and embolism; Z91.81 History of falling; Z51.5 Encounter for palliative care; Z87.440 Personal history of urinary (tract) infections
CPT/HCPCS: 36415; 71010; 71020; 71275; 80048; 80053; 81001; 82040; 83735; 84484; 85025; 85027; 85610; 87086; 87088; 87186; 93005; 93010; 96374; 99285; G0378; J0696; J1940; J2543; J3490; J7040; J7120